=== PATIENT | female | born 1950 | race Caucasian/White ===

== ENCOUNTER 2016-04-04 13:37 | Inpatient (IN) | payer OTHER ==
--- NOTE | 2016-04-04 15:32 | PDOC ---
History of Present Illness - General History Source: Patient, Old Records Exam Limitations: No Limitations <Deann Motley - Last Filed: 04/04/16 16:19> - History of Present Illness Initial Comments: 04/04/16 16:30 The patient is a 65 year old female with significant past medical history of asthma, gastritis, cervical cancer s/p hysterectomy, vertebral fractures on chronic pain medications (morphine pump) who presents to the emergency department with worsening chest pain and abdominal pain for the last 2 weeks. The patient states that her chest pain is intermittent in nature and is described as pressure. The pain radiates to her back and is worse with deep inspiration. Her pain is described as a 10/10 in severity. She denies shortness of breath or palpitations.The patient is also complaining of suprapubic abdominal pain. She denies any associated nausea, vomiting, or diarrhea. She denies any hematuria but does report dysuria and frequency. She denies fevers and sick contacts. <Shari Vogel - Last Filed: 04/04/16 16:32> - General Chief Complaint: Pain Stated Complaint: CHEST PAIN Time Seen by Provider: 04/04/16 14:23 Past History - Past Medical History Asthma: Yes Cancer: Yes (cervical) Other medical history: chronic back pain due to sx after fall - Surgical History Cholecystectomy: Yes - Psycho/Social/Smoking Cessation Hx Anxiety: No Suicidal Ideation: No Smoking History: Former smoker Have you smoked in the past 12 months: No If you are a former smoker, when did you quit?: 1970 Information on smoking cessation initiated: No Hx Alcohol Use: No Drug/Substance Use Hx: No Substance Use Type: None <Deann Motley - Last Filed: 04/04/16 16:19> <Shari Vogel - Last Filed: 04/04/16 16:32> - Past Medical History Allergies/Adverse Reactions: Allergies Allergy/AdvReac Type Severity Reaction Status Date / Time No Known Allergies Allergy Verified 04/04/16 14:32 Home Medications: Ambulatory Orders Unobtainable [Unobtainable] 04/04/16 Review of Systems - Review of Systems Able to Perform ROS?: Yes Comments:: 04/04/16 16:31 GENERAL/CONSTITUTIONAL: +Weakness. No fever or chills. HEAD, EYES, EARS, NOSE AND THROAT: No change in vision. No ear pain or discharge. No sore throat. CARDIOVASCULAR: +Chest pain. No shortness of breath. RESPIRATORY: +Wheezing. No cough or hemoptysis. GASTROINTESTINAL: +Abdominal pain. No nausea, vomiting, diarrhea or constipation. GENITOURINARY: +Dysuria, +frequency. No change in urination. MUSCULOSKELETAL: No joint or muscle swelling or pain. No neck or back pain. SKIN: No rash NEUROLOGIC: No headache, vertigo, loss of consciousness, or change in strength/ sensation. ENDOCRINE: No increased thirst. No abnormal weight change. HEMATOLOGIC/LYMPHATIC: No anemia, easy bleeding, or history of blood clots. ALLERGIC/IMMUNOLOGIC: No hives or skin allergy. <Shari Vogel - Last Filed: 04/04/16 16:32> *Physical Exam - Vital Signs Last Vital Signs Temp Pulse Resp BP Pulse Ox 99.1 F 70 18 134/75 100 04/04/16 13:37 04/04/16 13:37 04/04/16 13:37 04/04/16 13:37 04/04/16 13:37 <Deann Motley - Last Filed: 04/04/16 16:19> - Vital Signs Last Vital Signs Temp Pulse Resp BP Pulse Ox 99.1 F 70 18 134/75 100 04/04/16 13:37 04/04/16 13:37 04/04/16 13:37 04/04/16 13:37 04/04/16 13:37 - Physical Exam Comments: 04/04/16 16:31 GENERAL: Awake, alert, and fully oriented, in no acute distress HEAD: No signs of trauma EYES: PERRLA, EOMI, sclera anicteric, conjunctiva clear ENT: Auricles normal inspection, hearing grossly normal, nares patent, oropharynx clear without exudates. Moist mucosa NECK: Normal ROM, supple, no lymphadenopathy, JVD, or masses LUNGS: +Poor air movement with diffuse bilateral wheezes. HEART: Regular rate and rhythm, normal S1 and S2, no murmurs, rubs or gallops ABDOMEN: +Diffusely tender, worse in the epigastric and suprapubic region with voluntary guarding, no rebound. Soft, normoactive bowel sounds. No masses EXTREMITIES: Normal range of motion, no edema. No clubbing or cyanosis. No cords, erythema, or tenderness NEUROLOGICAL: Cranial nerves II through XII grossly intact. Normal speech, normal gait SKIN: Warm, Dry, normal turgor, no rashes or lesions noted. <JaspreetShari - Last Filed: 04/04/16 16:32> ED Treatment Course - LABORATORY CBC & Chemistry Diagram: 04/04/16 15:19 04/04/16 15:19 <Deann Motley - Last Filed: 04/04/16 16:19> - LABORATORY CBC & Chemistry Diagram: 04/04/16 15:19 04/04/16 15:19 - ADDITIONAL ORDERS Additional order review: Laboratory Results 04/04/16 15:19 Sodium 141 Potassium 3.9 Chloride 106 Carbon Dioxide 21 Anion Gap 14 BUN 24 H Creatinine 0.8 Creat Clearance w eGFR > 60 Random Glucose 64 L Calcium 8.8 Total Bilirubin 2.1 H AST 23 ALT 18 Alkaline Phosphatase 96 Creatine Kinase 78 Troponin I 0.03 Total Protein 7.3 Albumin 3.9 04/04/16 15:19 RBC 4.32 MCV 87.8 MCHC 32.8 RDW 13.2 MPV 9.8 Neutrophils % 82.6 Lymphocytes % 12.7 Monocytes % 3.8 Eosinophils % 0.6 Basophils % 0.3 <Shari Vogel - Last Filed: 04/04/16 16:32> Medical Decision Making - Medical Decision Making 04/04/16 16:19 65-year-old female with history of cervical cancer status post hysterectomy, COPD/asthma and vertebral fractures on chronic pain management including an implanted morphine pump in the left lower quadrant who presents to the emergency Department with complaints of a 2 month history of progressively worsening lower abdominal pain, dysuria and chest pain with shortness of breath. Differential diagnosis includes but is not limited to: Intra-abdominal process, UTI, asthma/COPD exacerbation, pneumonia, PE, ACS, electrolyte abnormality, dehydration, toxic/metabolic derangement. Plan: 1. Labs 2. EKG 3. Urine analysis 4. Albuterol and Atrovent treatments 5. Solu-Medrol 6. Chest x-ray 7. Pain management 8. Patient will likely require abdominal imaging given her past medical history and clinical presentation 9. Observe and reevaluate <Deann Motley - Last Filed: 04/04/16 16:19> *DC/Admit/Observation/Transfer - Attestations Physician Attestion: 04/04/16 16:22 I, Dr. Deann Motley, attest that the scribes documentation that appears above has been prepared under my direction and personally reviewed by me in its entirety. I confirmed that the note above accurately reflects all work, treatment, procedures, and medical decision-making performed by me. <Deann Motley - Last Filed: 04/04/16 16:19> - Attestations Scribe Attestion: 04/04/16 16:31 Documentation prepared by Shari Vogel, acting as medical insurance clerk for Deann Motley MD. <Shari Vogel - Last Filed: 04/04/16 16:32> Diagnosis at time of Disposition: Abdominal pain, Chest pain
[2016-04-04 15:33] LABS: BASOPHIL 0.3 % (0-2.0); EOSINOPHIL 0.6 % (0-4.5); MCH 28.8 pg (25.7-33.7); MCHC 32.8 g/dl (32.0-36.0); MEAN CELL VOLUME 87.8 fl (80-96); MEAN PLT VOLUME 9.8 fl (7.5-11.1); NEUTROPHILS 82.6 % (42.8-82.8); PLATELET COUNT 215 K/MM3 (134-434); RDW 13.2 % (11.6-15.6); WHITE BLOOD COUNT 7.6 K/mm3 (4.0-10.0)
[2016-04-04 15:58] LABS: ALBUMIN 3.9 g/dl (3.4-5.0); ANION GAP 14 (8-16); BILIRUBIN,TOTAL 2.1 mg/dL (0.2-1.0); CALCIUM 8.8 mg/dL (8.5-10.1); CO2 21 mmol/L (21-32); CREATININE 0.8 mg/dL (0.55-1.02); GLUCOSE,RANDOM 64 mg/dL (74-106); SGPT/ALT 18 U/L (12-78); TOT PROT 7.3 g/dl (6.4-8.2)
[2016-04-04 16:00] LABS: ALK PHOS 96 U/L (45-117); TROPONIN I 0.03 ng/ml (0.00-0.05)
[2016-04-04 16:15] LABS: SGOT/AST 23 U/L (15-37)
[2016-04-04] MEDS ORDERED: methylPREDNISolone NA SUCC 125 MG/2 ML VIAL IVPB ONE (16:18)
[2016-04-04] MEDS ORDERED: IPRATROPIUM BR 0.02% 0.5 MG/2.5 ML VIAL.NEB. NEB ONE ×2 (16:18→16:30)
[2016-04-04] MEDS ORDERED: HYDROmorphone HCL CARPU-JECT 1 MG/1 ML DISP.SYRIN IVPUSH ONE (16:19)
[2016-04-04] MEDS ORDERED: HYDROmorphone HCL CARPU-JECT 1 MG/1 ML DISP.SYRIN ONE (16:30)
[2016-04-04] MEDS ORDERED: methylPREDNISolone NA SUCC 125 MG/2 ML VIAL ONE (16:30)
[2016-04-04] MEDS: ALBUTEROL SO4 0.083% IH SOL 2.5 MG/3 ML VIAL.NEB. NEB SCH ×4 (16:45→17:29)
[2016-04-04] MEDS ORDERED: ALBUTEROL SO4 0.083% IH SOL 2.5 MG/3 ML VIAL.NEB. NEB ONE (17:10)
[2016-04-04] MEDS ORDERED: SODIUM CHLORIDE 1,000 ML IV STA (17:16)
[2016-04-04 23:02] LABS: URINE APPEARANCE CLEAR; URINE BILIRUBIN NEGATIVE (NEGATIVE); URINE COLOR LTYELLOW; URINE GLUCOSE (UA) NEGATIVE (NEGATIVE); URINE KETONE 2+ (NEGATIVE); URINE LEUK ESTERASE NEGATIVE (NEGATIVE); URINE NITRITE NEGATIVE (NEGATIVE); URINE PROTEIN NEGATIVE (NEGATIVE); URINE UROBILINOGEN NEGATIVE E.U./dl (0.2-1.0)
[2016-04-04 23:17] LABS: URINE BLOOD 1+ (NEGATIVE)
[2016-04-04 23:20] LABS: URINE MUCUS RARE; URINE RBC <1 /hpf (0-3); URINE WBC 1 /hpf (3-5)
[2016-04-04] MEDS ORDERED: KETOROLAC TROMETHAMINE 30 MG/1 ML VIAL IVPUSH ONE (23:46)
--- NOTE | 2016-04-04 23:46 | PDOC ---
*Physical Exam - Vital Signs Last Vital Signs Temp Pulse Resp BP Pulse Ox 99.1 F 70 18 134/75 100 04/04/16 13:37 04/04/16 13:37 04/04/16 13:37 04/04/16 13:37 04/04/16 13:37 ED Treatment Course - LABORATORY CBC & Chemistry Diagram: 04/04/16 15:19 04/04/16 15:19 - ADDITIONAL ORDERS Additional order review: Laboratory Results 04/04/16 04/04/16 04/04/16 22:40 22:20 19:20 D-Dimer Cancelled Cancelled Sodium Potassium Chloride Carbon Dioxide Anion Gap BUN Creatinine Creat Clearance w eGFR Random Glucose Calcium Total Bilirubin AST ALT Alkaline Phosphatase Creatine Kinase Troponin I Total Protein Albumin Urine Color Ltyellow Urine Appearance Clear Urine pH 5.0 Ur Specific [place] 1.026 Urine Protein Negative Urine Glucose (UA) Negative Urine Ketones 2+ H Urine Blood 1+ H Urine Nitrite Negative Urine Bilirubin Negative Urine Urobilinogen Negative Ur Leukocyte Esterase Negative 04/04/16 15:19 D-Dimer Sodium 141 Potassium 3.9 Chloride 106 Carbon Dioxide 21 Anion Gap 14 BUN 24 H Creatinine 0.8 Creat Clearance w eGFR > 60 Random Glucose 64 L Calcium 8.8 Total Bilirubin 2.1 H AST 23 ALT 18 Alkaline Phosphatase 96 Creatine Kinase 78 Troponin I 0.03 Total Protein 7.3 Albumin 3.9 Urine Color Urine Appearance Urine pH Ur Specific [place] Urine Protein Urine Glucose (UA) Urine Ketones Urine Blood Urine Nitrite Urine Bilirubin Urine Urobilinogen Ur Leukocyte Esterase 04/04/16 15:19 RBC 4.32 MCV 87.8 MCHC 32.8 RDW 13.2 MPV 9.8 Neutrophils % 82.6 Lymphocytes % 12.7 Monocytes % 3.8 Eosinophils % 0.6 Basophils % 0.3 - Medications Given in the ED: ED Medications Discontinued Medications Generic Name Dose Route Start Last Admin Trade Name Freq PRN Reason Stop Dose Admin Albuterol Sulfate 1 amp 04/04/16 16:30 04/04/16 17:29 Ventolin 0.083% Nebulizer Soln - NEB 04/04/16 17:16 1 amp Q15M ALDA Administration Hydromorphone HCl 1 mg 04/04/16 16:19 04/04/16 16:39 Dilaudid Injection - IVPUSH 04/04/16 16:20 1 mg ONCE ONE Administration Sodium Chloride 1,000 mls @ 1,000 mls/hr 04/04/16 17:16 04/04/16 17:36 Normal Saline - IV 04/04/16 18:15 1,000 mls/hr ASDIR STA Administration Ipratropium Echo 1 amp 04/04/16 16:18 04/04/16 16:39 Atrovent 0.02% Nebulizer - NEB 04/04/16 16:19 1 amp ONCE ONE Administration Methylprednisolone Sodium Succinate 125 mg 04/04/16 16:18 04/04/16 16:39 Solu-Medrol - IVPB 04/04/16 16:19 125 mg ONCE ONE Administration *DC/Admit/Observation/Transfer Diagnosis at time of Disposition: Abdominal pain, Chest pain - Discharge Dispostion Condition at time of disposition: Stable Admit: Yes
[2016-04-04] MEDS ORDERED: KETOROLAC TROMETHAMINE 30 MG/1 ML VIAL ONE (23:50)
--- NOTE | 2016-04-05 00:30 | PN ---
<Jillian Teran - Last Filed: 04/05/16 04:55> Teaching Attending Note ATTENDING PHYSICIAN STATEMENT I saw and evaluated the patient. I reviewed the resident's note and discussed the case with the resident. I agree with the resident's findings and plan as documented. SUBJECTIVE: 65 yo F presents complaining of worsening lower abdomen radiating towards back for 2 weeks. She describes her chest pain as burning and notes that she burps sometimes and also relieved with her nebulization. She describes her abdominal pain as sharp and constant (10/10), which started in June, after her morphine pump was replaced. She reports that her pain has no alleviating or exacerbating factors. She also notes dysuria and increased frequency Q 5minutes when the pain is at its worst. She recently went to [facility] in February and was discharged with pain meds. Denies following with pain management. Denies: vomiting, cough PMHx: asthma, gastritis, cervical cancer s/p hysterectomy, vertebral fractures on chronic pain medications (morphine pump) Family Hx: Father had colon cancer Allergies: penicillin Social Hx: Smoker 14 years 1 pack in there days. OBJECTIVE: Last Vital Signs Temp Pulse Resp BP Pulse Ox 99.1 F 70 18 134/75 100 04/04/16 13:37 04/04/16 13:37 04/04/16 13:37 04/04/16 13:37 04/04/16 13:37 GENERAL: Awake, alert, and fully oriented, in no acute distress HEENT: Atraumatic. PERRLA, EOMI. Moist mucosa. No JVD LUNGS: No distress, speaks full sentences, clear to auscultation bilaterally HEART: Regular rate and rhythm, normal S1 and S2, no murmurs, rubs or gallops, peripheral pulses normal and equal bilaterally. ABDOMEN: Soft, abdominal tenderness bilateral lower, normoactive bowel sounds. No guarding, no rebound. No masses EXTREMITIES: Normal inspection, Normal range of motion, no edema. No clubbing or cyanosis. NEUROLOGICAL: Cranial nerves II through XII grossly intact. Normal speech, normal gait, no focal sensorimotor deficits SKIN: Warm, Dry, normal turgor, no rashes or lesions noted. CBCD WBC 7.6 K/mm3 (4.0-10.0) 04/04/16 15:19 RBC 4.32 M/mm3 (3.60-5.2) 04/04/16 15:19 Hgb 12.4 GM/dL (10.7-15.3) 04/04/16 15:19 Hct 37.9 % (32.4-45.2) 04/04/16 15:19 MCV 87.8 fl (80-96) 04/04/16 15:19 MCHC 32.8 g/dl (32.0-36.0) 04/04/16 15: RDW 13.2 % (11.6-15.6) 04/04/16 15:19 Plt Count 215 K/MM3 (134-434) 04/04/16 15:19 MPV 9.8 fl (7.5-11.1) 04/04/16 15:19 CMP Sodium 141 mmol/L (136-145) 04/04/16 15:19 Potassium 3.9 mmol/L (3.5-5.1) 04/04/16 15: Chloride 106 mmol/L (98-107) 04/04/16 15:19 Carbon Dioxide 21 mmol/L (21-32) 04/04/16 15:19 Anion Gap 14 (8-16) 04/04/16 15:19 BUN 24 mg/dL (7-18) H 04/04/16 15:19 Creatinine 0.8 mg/dL (0.55-1.02) 04/04/16 15:19 Creat Clearance w eGFR > 60 (>60) 04/04/16 15:19 Calcium 8.8 mg/dL (8.5-10.1) 04/04/16 15:19 Total Bilirubin 2.1 mg/dL (0.2-1.0) H 04/04/16 15:19 AST 23 U/L (15-37) 04/04/16 15:19 ALT 18 U/L (12-78) 04/04/16 15:19 Alkaline Phosphatase 96 U/L (45-117) 04/04/16 15:19 Total Protein 7.3 g/dl (6.4-8.2) 04/04/16 15:19 Albumin 3.9 g/dl (3.4-5.0) 04/04/16 15:19 Chest X-Ray Impression: No evidence of active pulmonary disease. Abdomen and Pelvis CT Impression: No definite CT evidence of acute pathology. Pneumobilia is seen probably on a post surgical basis. Correlate clinically. There is mild nonspecific dilation of the main pancreatic duct. Comparison with previous CT/MRI studies is suggested if available from a different facility. If prior studies are not 1. ASSESSMENT AND PLAN: 1.) Acute on chronic abdominal pain possible adhesions -Percocet Q 6 hrs PRN -Continue morphine pump -Pain management consult 2.) Elevated D-dimer most likely secondary to history of cancer. Patient with no clinical symptoms of DVT or PE. - no further testing at this time. If Vitals change consider VQ scan Documentation prepared by Jillian Teran, acting as emergency medicine medical director for Chelsy Molina M.D. <Chelsy Molina - Last Filed: 04/05/16 07:41> Teaching Attending Note Name of Resident: Korin Whitman Addendum to plan: Discussed case with GI showroom sales consultant Dr Wilcox who is aware of patient's extensive GI history with Pancreatic duct obstruction recently treated at [facility] by Dr Ramos. Patient is currently c/o b/l lower abdominal pain and recommendation to hydrate and empirically treat with levo and flagyl.
--- NOTE | 2016-04-05 01:02 | CONSULT ---
Consultation: REQUESTING PROVIDER: CONSULT REQUEST: We have been asked to medically evaluate this patient for ( specify). HISTORY OF PRESENT ILLNESS: REVIEW OF SYSTEMS: CONSTITUTIONAL: Absent: fever, chills, diaphoresis, generalized weakness, malaise, loss of appetite, weight change HEENT: Absent: rhinorrhea, nasal congestion, throat pain, throat swelling, difficulty swallowing, mouth swelling, ear pain, eye pain, visual changes CARDIOVASCULAR: Absent: chest pain, syncope, palpitations, irregular heart rate, lightheadedness , peripheral edema RESPIRATORY: Absent: cough, shortness of breath, dyspnea with exertion, orthopnea, wheezing, stridor, hemoptysis GASTROINTESTINAL: Absent: abdominal pain, abdominal distension, nausea, vomiting, diarrhea, constipation, melena, hematochezia GENITOURINARY: Absent: dysuria, frequency, urgency, hesitancy, hematuria, flank pain, genital pain MUSCULOSKELETAL: Absent: myalgia, arthralgia, joint swelling, back pain, neck pain SKIN: Absent: rash, itching, pallor HEMATOLOGIC/IMMUNOLOGIC: Absent: easy bleeding, easy bruising, lymphadenopathy, frequent infections ENDOCRINE: Absent: unexplained weight gain, unexplained weight loss, heat intolerance, cold intolerance NEUROLOGIC: Absent: headache, focal weakness or paresthesias, dizziness, unsteady gait, seizure, mental status changes, bladder or bowel incontinence PSYCHIATRIC: Absent: anxiety, depression, suicidal or homicidal ideation, hallucinations. PHYSICAL EXAMINATION Vital Signs - 24 hr 04/04/16 13:37 Temperature 99.1 F Pulse Rate 70 Respiratory 18 Rate Blood Pressure 134/75 O2 Sat by Pulse 100 Oximetry (%) GENERAL: Awake, alert, and fully oriented, in no acute distress. HEAD: Normal with no signs of trauma. EYES: Pupils equal, round and reactive to light, extraocular movements intact, sclera anicteric, conjunctiva clear. No lid lag. EARS, NOSE, THROAT: Ears normal, nares patent, oropharynx clear without exudates. Moist mucous membranes. NECK: Normal range of motion, supple without lymphadenopathy, JVD, or masses. LUNGS: Breath sounds equal, clear to auscultation bilaterally. No wheezes, and no crackles. No accessory muscle use. HEART: Regular rate and rhythm, normal S1 and S2 without murmur, rub or gallop. ABDOMEN: Soft, nontender, not distended, normoactive bowel sounds, no guarding, no rebound, no masses. No hepatomegaly or splenomegaly. MUSCULOSKELETAL: Normal range of motion at all joints. No bony deformities or tenderness. No CVA tenderness. UPPER EXTREMITIES: 2+ pulses, warm, well-perfused. No cyanosis. No clubbing. Cap refill <2 seconds. No peripheral edema. LOWER EXTREMITIES: 2+ pulses, warm, well-perfused. No calf tenderness. No peripheral edema. NEUROLOGICAL: Cranial nerves II-XII intact. Normal speech. Normal gait. PSYCHIATRIC: Cooperative. Good eye contact. Appropriate mood and affect. SKIN: Warm, dry, normal turgor, no rashes or lesions noted. Laboratory Results - last 24 hr 04/04/16 04/04/16 04/04/16 15:19 15:19 19:20 WBC 7.6 RBC 4.32 Hgb 12.4 Hct 37.9 MCV 87.8 MCHC 32.8 RDW 13.2 Plt Count 215 MPV 9.8 Neutrophils % 82.6 Lymphocytes % 12.7 Monocytes % 3.8 Eosinophils % 0.6 Basophils % 0.3 D-Dimer Cancelled Sodium 141 Potassium 3.9 Chloride 106 Carbon Dioxide 21 Anion Gap 14 BUN 24 H Creatinine 0.8 Creat Clearance w eGFR > 60 Random Glucose 64 L Calcium 8.8 Total Bilirubin 2.1 H AST 23 ALT 18 Alkaline Phosphatase 96 Creatine Kinase 78 Troponin I 0.03 Total Protein 7.3 Albumin 3.9 Urine Color Urine Appearance Urine pH Ur Specific [place] Urine Protein Urine Glucose (UA) Urine Ketones Urine Blood Urine Nitrite Urine Bilirubin Urine Urobilinogen Ur Leukocyte Esterase Urine RBC Urine WBC Urine Mucus 04/04/16 04/04/16 04/04/16 22:20 22:40 23:00 WBC RBC Hgb Hct MCV MCHC RDW Plt Count MPV Neutrophils % Lymphocytes % Monocytes % Eosinophils % Basophils % D-Dimer Cancelled 461 H Sodium Potassium Chloride Carbon Dioxide Anion Gap BUN Creatinine Creat Clearance w eGFR Random Glucose Calcium Total Bilirubin AST ALT Alkaline Phosphatase Creatine Kinase Troponin I Total Protein Albumin Urine Color Ltyellow Urine Appearance Clear Urine pH 5.0 Ur Specific [place] 1.026 Urine Protein Negative Urine Glucose (UA) Negative Urine Ketones 2+ H Urine Blood 1+ H Urine Nitrite Negative Urine Bilirubin Negative Urine Urobilinogen Negative Ur Leukocyte Esterase Negative Urine RBC <1 Urine WBC 1 Urine Mucus Rare ASSESSMENT/PLAN: Dispo: We will continue to follow the patient. Thank you for this consultative opportunity.
[2016-04-05 01:11] LABS: TROPONIN I 0.04 ng/ml (0.00-0.05)
[2016-04-05] MEDS ORDERED: ALBUTEROL SO4 2.5/IPRATROPIUM 0.5 INH SOL 3 ML VIAL.NEB. NEB PRN (03:00)
[2016-04-05] MEDS ORDERED: OXYCODONE/APAP 5/325MG COMBO TABLET PO ONE (04:06)
--- NOTE | 2016-04-05 04:53 | HP ---
CHIEF COMPLAINT: Abdominal pain PCP: Dr. Ann Dwyer HISTORY OF PRESENT ILLNESS: 65 year old female presented to the ED via EMS with the chief complaints of severe abdominal pain. As per the patient, abdominal pain was located diffusely but mostly on the left lower quadrant, intermittent in nature, sharp in quality , 6/10 rising to 10/10 in intensity, radiating towards the back, no aggravating or relieving factors. She mentions abdominal pain started since June, when they changed the morphine pump. Ever since, she has had abdominal pain as described above. Went to [facility] in February, for the same problem but was discharged from the ED with pain meds. When she has the abdominal pain, she feels like urinating, has also noticed increased in urination, burning in nature +, but no incontinence. Patient also reports central chest pain, burning in nature, burping +, started 2-3 days ago, intermittent type, associated with SOB and palpitations no aggravating or relieving factors. Takes albuterol inhaler which gives short term relief for SOB. Patient states she does have dizziness, feels weak, has headache on/off but denies fever , chills, rigors, sweating, LOC. ER course was notable for: (1) CBC, CMP (2) Abd/Pelvis CT (3) Recent Travel: None PAST MEDICAL HISTORY: Asthma, Gastritis, cervical cancer s/p hysterectomy in 1994, vertebral fracture on chronic pain meds (morphine pump) PAST SURGICAL HISTORY: s/p hysterectomy for Cervical CA Social History: Smoking: Stopped smoking i n2001, smoked for 14 years 1 pack in 3 days Alcohol: Doesn't drink alcohol now. Drugs: No drugs Family History: Allergies PENICILLIN, ASPIRIN Gets rash and vomiting. Lives alone. HOME MEDICATIONS: Medication Instructions Recorded Unobtainable [Unobtainable] 04/04/16 REVIEW OF SYSTEMS CONSTITUTIONAL: Present: generalized weakness, malaise Absent: fever, chills, diaphoresis, loss of appetite, weight change HEENT: Absent: rhinorrhea, nasal congestion, throat pain, throat swelling, difficulty swallowing, mouth swelling, ear pain, eye pain, visual changes CARDIOVASCULAR: Present: Chest pain Absent: syncope, palpitations, irregular heart rate, lightheadedness, peripheral edema RESPIRATORY: Present: shortness of breath, dyspnea with exertion Absent: cough, orthopnea, wheezing, stridor, hemoptysis GASTROINTESTINAL: Present: abdominal pain Absent:abdominal distension, nausea, vomiting, diarrhea, constipation, melena, hematochezia GENITOURINARY: Present: dysuria, frequency Absent: urgency, hesitancy, hematuria, flank pain, genital pain MUSCULOSKELETAL: Absent: myalgia, arthralgia, joint swelling, back pain, neck pain SKIN: Absent: rash, itching, pallor HEMATOLOGIC/IMMUNOLOGIC: Absent: easy bleeding, easy bruising, lymphadenopathy, frequent infections ENDOCRINE: Absent: unexplained weight gain, unexplained weight loss, heat intolerance, cold intolerance NEUROLOGIC: Absent: headache, focal weakness or paresthesias, dizziness, unsteady gait, seizure, mental status changes, bladder or bowel incontinence PSYCHIATRIC: Absent: anxiety, depression, suicidal or homicidal ideation, hallucinations. PHYSICAL EXAMINATION GENERAL: Patient lying in bed in supine position, Awake, alert, and fully oriented, in abdominal pain. HEAD: Normal with no signs of trauma. EYES: EOM intact, no pallor or icterus. EARS, NOSE, THROAT: Ears normal. Moist mucous membranes. NECK: Normal range of motion, supple. LUNGS: Breath sounds equal, clear to auscultation bilaterally. No wheezes, and no crackles. No accessory muscle use. HEART: Regular rate and rhythm, normal S1 and S2 without murmur, rub or gallop. ABDOMEN: Surgical scar clark +, Morphine pump placed on the left upper quadrant, Soft, tenderness over the left upper quadrant, not distended, normoactive bowel sounds, no guarding, no rebound, no masses. hepatomegaly or splenomegaly couldn't be appreciated. MUSCULOSKELETAL: Normal range of motion at all joints. No bony deformities or tenderness. No CVA tenderness. UPPER EXTREMITIES: 2+ pulses, warm, well-perfused. No cyanosis. No clubbing. No peripheral edema. LOWER EXTREMITIES: 2+ pulses, warm, well-perfused. No calf tenderness. No peripheral edema. NEUROLOGICAL: Cranial nerves II-XII intact. Normal speech. Gait couldn't be observed. PSYCHIATRIC: Cooperative. Good eye contact. Appropriate mood and affect. SKIN: Warm, dry, normal turgor, no rashes or lesions noted. Abdominal CT/Pelvis: No acute pathology. Pneumobilia seen probably on a postsurgical basis. There is mild nonspecific dilatation of the main pancreatic alvaro. ASSESSMENT/PLAN: 65 year old female with significant PMH of Asthma, Gastritis, cervical cancer s/ p hysterectomy in 1994, vertebral fracture on chronic pain meds (morphine pump) presented to the ED via EMS with the chief complaints of severe abdominal pain. # Abdominal pain Pain possibly secondary to her morphine pump placement ? Adhesions H/o vertebral fracture with referal to dermatomes. Abd Pelvis CT showed no acute pathology, report mentioned above Comparison with previous CT/MRI suggested if available in different facility. Had complained of dysuria, increased frequency of urine associated with abdominal pain, UA negative for UTI Percocet Q6H PRN Pain management consult Levofloxacin IV 500mg Daily Flagyl IV Q8H # Chest pain Clinical symptoms less likely PE. Wells score 2 Elevated D Dimer most likely due to her previous malignancy However, if symptoms change consider V/Q scan # Asthma-Stable this admission Duoneb PRN # FEN IV NS @ 200 mls/hr Electrolytes to be repeated tomorrow NPO except for meds. # Prophylaxis For DVT- Enoxaparin For GI- On Protonix Dr. Al spoke with Dr. Wilcox. Patient is well known to Dr. Wilcox, has frequent blocking of pancreatic duct, had recent ERCP done at [facility] by Dr. Newsome. Plan is to keep her at NPO, IV fluids @ 200mls, Levofloxacin, Flagyl. Illness, Investigation and plan of care explained to the patient. She verbalized understanding. Case seen and discussed with Dr. Molina. Visit type - Emergency Visit Emergency Visit: Yes ED Registration Date: 04/05/16 Care time: The patient presented to the Emergency Department on the above date and was hospitalized for further evaluation of their emergent condition. - New Patient This patient is new to me today: Yes Date on this admission: 04/05/16 - Critical Care Critical Care patient: No
[2016-04-05] MEDS ORDERED: OXYCODONE/APAP 5/325MG COMBO TABLET ONE (05:04)
[2016-04-05] MEDS ORDERED: OXYCODONE/APAP 5/325MG COMBO TABLET PO PRN (05:15)
[2016-04-05] MEDS ORDERED: ACETAMINOPHEN 325 MG TABLET (FP) PO PRN (05:43)
[2016-04-05] MEDS ORDERED: oxyCODONE HCL 5 MG TABLET PO PRN (05:43)
[2016-04-05] MEDS ORDERED: SODIUM CHLORIDE 1,000 ML IV SCH (07:00)
[2016-04-05] MEDS ORDERED: LEVOFLOXACIN 500 MG IVPB 100 ML IVPB SCH (07:45)
[2016-04-05] MEDS ORDERED: LEVOFLOXACIN 500 MG IVPB 100 ML IVPB ONE (08:11)
[2016-04-05] MEDS ORDERED: METRONIDAZOLE 500 MG PREMIXED 100 ML IVPB ONE (08:11)
[2016-04-05] MEDS: SODIUM CHLORIDE 1,000 ML IV SCH (08:23)
--- NOTE | 2016-04-05 08:50 | PN ---
Teaching Attending Note Name of Resident: Svetlana Duncan ATTENDING PHYSICIAN STATEMENT I saw and evaluated the patient. I reviewed the resident's note and discussed the case with the resident. I agree with the resident's findings and plan as documented. SUBJECTIVE: c/o having abdominal pain . No chest pain. OBJECTIVE: Vital Signs Temperature 98 F 04/05/16 08:26 Pulse Rate 87 04/05/16 08:26 Respiratory Rate 18 04/05/16 08:26 Blood Pressure 122/65 04/05/16 08:26 O2 Sat by Pulse Oximetry (%) 98 04/05/16 08:26 CBCD WBC 7.6 K/mm3 (4.0-10.0) 04/04/16 15: RBC 4.32 M/mm3 (3.60-5.2) 04/04/16 15:19 Hgb 12.4 GM/dL (10.7-15.3) 04/04/16 15:19 Hct 37.9 % (32.4-45.2) 04/04/16 15:19 MCV 87.8 fl (80-96) 04/04/16 15:19 MCHC 32.8 g/dl (32.0-36.0) 04/04/16 15:19 RDW 13.2 % (11.6-15.6) 04/04/16 15:19 Plt Count 215 K/MM3 (134-434) 04/04/16 15:19 MPV 9.8 fl (7.5-11.1) 04/04/16 15:19 CMP Sodium 141 mmol/L (136-145) 04/04/16 15:19 Potassium 3.9 mmol/L (3.5-5.1) 04/04/16 15:19 Chloride 106 mmol/L (98-107) 04/04/16 15:19 Carbon Dioxide 21 mmol/L (21-32) 04/04/16 15:19 Anion Gap 14 (8-16) 04/04/16 15:19 BUN 24 mg/dL (7-18) H 04/04/16 15:19 Creatinine 0.8 mg/dL (0.55-1.02) 04/04/16 15:19 Creat Clearance w eGFR > 60 (>60) 04/04/16 15:19 Random Glucose 64 mg/dL (74-106) L 04/04/16 15:19 Calcium 8.8 mg/dL (8.5-10.1) 04/04/16 15:19 Total Bilirubin 2.1 mg/dL (0.2-1.0) H 04/04/16 15:19 AST 23 U/L (15-37) 04/04/16 15:19 ALT 18 U/L (12-78) 04/04/16 15:19 Alkaline Phosphatase 96 U/L (45-117) 04/04/16 15:19 Total Protein 7.3 g/dl (6.4-8.2) 04/04/16 15:19 Albumin 3.9 g/dl (3.4-5.0) 04/04/16 15:19 CARDIAC ENZYMES Creatine Kinase 51 IU/L (26-192) 04/05/16 07:54 Troponin I 0.04 ng/ml (0.00-0.05) 04/05/16 07:54 Current Medications Generic Name Dose Route Start Last Admin Trade Name Freq PRN Reason Stop Dose Admin Albuterol/Ipratropium 1 amp 04/05/16 03:00 Duoneb - NEB Q6H PRN SHORTNESS OF BREATH Ceftriaxone Sodium 1 gm 04/05/16 19:30 Rocephin 1gm Ivpb (Pre-Docked) IVPB DAILY ALDA Enoxaparin Sodium 40 mg 04/05/16 10:00 04/05/16 09:37 Lovenox - SQ 40 mg DAILY ALDA Administration Pantoprazole Sodium 100 mls @ 200 mls/hr 04/05/16 10:00 04/05/16 09:27 Protonix 40mg Ivpb (Pre-Docked) IVPB 200 mls/hr DAILY ALDA Administration Metronidazole 100 mls @ 100 mls/hr 04/05/16 07:45 04/05/16 18:24 Flagyl 500mg Premixed Ivpb - IVPB 100 mls/hr Q8H-IV ALDA Administration Sodium Chloride 1,000 mls @ 200 mls/hr 04/05/16 07:39 04/05/16 08:23 Normal Saline - IV 200 mls/hr ASDIR ALDA Administration Metoclopramide HCl 10 mg 04/05/16 18:15 04/05/16 18:29 Reglan Injection - IVPB 10 mg Q8H ALDA Administration Ondansetron HCl 4 mg 04/05/16 18:14 04/05/16 18:29 Zofran Injection IVPB 04/06/16 06:15 4 mg Q4H ALDA Administration Ondansetron HCl 4 mg 04/06/16 06:00 Zofran Injection IVPB Q4H PRN Ondansetron HCl 4 mg 04/05/16 19:14 Zofran Injection IVPB Q4H PRN NAUSEA AND/OR VOMITING Oxycodone HCl 5 mg 04/05/16 05:43 Roxicodone - PO Q6H PRN PAIN Medication Instructions Recorded Albuterol Sulfate Inhaler - 2 inh PO Q4H PRN 04/05/16 [Ventolin Hfa Inhaler -] Docusate Sodium [Colace -] 100 mg PO TID 04/05/16 Fluticasone Propionate [Flovent 110 mcg IH BID 04/05/16 Diskus] Gabapentin 600 mg PO TID 04/05/16 Loratadine 10 mg PO DAILY 04/05/16 Metoclopramide HCl [Reglan] 10 mg PO Q8H 04/05/16 Montelukast Na [Singulair -] 10 mg PO DAILY 04/05/16 [place]-3 Fatty Acids [[place]-3] 1,000 mg PO DAILY 04/05/16 Pantoprazole Sodium 40 mg PO DAILY 04/05/16 ASSESSMENT AND PLAN: c/o having abdominal pain . No chest pain States that after changing her morphine pump started to have this pain over one year now on IV rocephin/Flagyl changed from Levaquin since DDI with zotran will have QT prolongation # Intractable Nausea and vomiting added Zofran DVT Px; Lovenox
[2016-04-05 08:57] LABS: TROPONIN I 0.04 ng/ml (0.00-0.05)
[2016-04-05] MEDS: METRONIDAZOLE 500 MG PREMIXED 100 ML IVPB SCH ×3 (09:06→18:24)
[2016-04-05] MEDS ORDERED: PANTOPRAZOLE SODIUM 40 MG VIAL ONE (09:13)
[2016-04-05] MEDS ORDERED: ONDANSETRON 4 MG/2 ML VIAL ONE (09:13)
[2016-04-05] MEDS: PANTOPRAZOLE SODIUM 100 ML IVPB SCH (09:27)
[2016-04-05] MEDS: ENOXAPARIN NA (PORCINE) 40 MG/0.4 ML DISP.SYRIN SQ SCH (09:37)
[2016-04-05 12:08] VITALS: BMI 20.5
--- NOTE | 2016-04-05 15:36 | EKG ---
Test Reason : Blood Pressure : / mmHG Vent. Rate : 065 BPM Atrial Rate : 065 BPM P-R Int : 184 ms QRS Dur : 084 ms QT Int : 422 ms P-R-T Axes : 071 -05 038 degrees QTc Int : 438 ms POOR DATA QUALITY NORMAL SINUS RHYTHM NORMAL ECG WHEN COMPARED WITH ECG OF 04-APR-2016 13:43, NO SIGNIFICANT CHANGE WAS FOUND Confirmed by TRAVIS GONZALES MD ([id number]) on 04/05/2016 3:36:19 PM Referred By: Confirmed By:TRAVIS GONZALES MD
--- NOTE | 2016-04-05 17:56 | PN ---
Physical Exam: SUBJECTIVE: Patient seen and examined. She is complaining of abdominal pain. denies N/V, diarrhea, constipation. OBJECTIVE: Vital Signs Period Temp Pulse Resp BP Sys/Armenta Pulse Ox Last 24 Hr 97.8 F-98.1 F 68-87 18-18 122-149/65-86 97-99 GENERAL: The patient is awake, alert, and fully oriented, in no acute distress. HEAD: Normal with no signs of trauma. EYES: PERRL, extraocular movements intact, sclera anicteric, conjunctiva clear. No ptosis. ENT: Ears normal, nares patent, oropharynx clear without exudates, moist mucous membranes. NECK: Trachea midline, full range of motion, supple. LUNGS: Breath sounds equal, clear to auscultation bilaterally, no wheezes, no crackles, no accessory muscle use. HEART: Regular rate and rhythm, S1, S2 without murmur, rub or gallop. ABDOMEN: Soft, tender in epigastrium, nondistended, normoactive bowel sounds, no guarding, no rebound, no hepatosplenomegaly, pump in LUQ. EXTREMITIES: 2+ pulses, warm, well-perfused, no edema. NEUROLOGICAL: Cranial nerves II through XII grossly intact. Normal speech, gait not observed. PSYCH: Normal mood, normal affect. SKIN: Warm, dry, normal turgor, no rashes, abd scar. Laboratory Results - last 24 hr 04/05/16 07:54 Creatine Kinase 51 Troponin I 0.04 Active Medications Generic Name Dose Route Start Last Admin Trade Name Freq PRN Reason Stop Dose Admin Acetaminophen 325 mg 04/05/16 05:43 Tylenol - PO Q6H PRN PAIN Albuterol/Ipratropium 1 amp 04/05/16 03:00 Duoneb - NEB Q6H PRN SHORTNESS OF BREATH Enoxaparin Sodium 40 mg 04/05/16 10:00 04/05/16 09:37 Lovenox - SQ 40 mg DAILY ALDA Administration Pantoprazole Sodium 100 mls @ 200 mls/hr 04/05/16 10:00 04/05/16 09:27 Protonix 40mg Ivpb (Pre-Docked) IVPB 200 mls/hr DAILY ALDA Administration Metronidazole 100 mls @ 100 mls/hr 04/05/16 07:45 04/05/16 09:27 Flagyl 500mg Premixed Ivpb - IVPB Not Given Q8H-IV ALDA Levofloxacin 100 mls @ 100 mls/hr 04/05/16 07:45 04/05/16 08:24 Levaquin 500 Mg Premixed Ivpb - IVPB 100 mls/hr DAILY@0600 ALDA Administration Sodium Chloride 1,000 mls @ 200 mls/hr 04/05/16 07:39 04/05/16 08:23 Normal Saline - IV 200 mls/hr ASDIR ALDA Administration Oxycodone HCl 5 mg 04/05/16 05:43 Roxicodone - PO Q6H PRN PAIN ASSESSMENT/PLAN: 65 year old female with significant PMH of Asthma, Gastritis, cervical cancer s/ p hysterectomy in 1994, vertebral fracture on chronic pain meds (morphine pump) presented to the ED via EMS with the chief complaints of severe abdominal pain. Abdominal pain -Pain possibly secondary to her morphine pump placement -GI consult pending -Percocet Q6H PRN -Pain management consult -Levofloxacin IV 500mg Daily changed to Rocephin -Flagyl IV Q8H Asthma-Stable this admission -Duoneb PRN FEN -IV NS @ 200 mls/hr -Electrolytes to be repeated tomorrow -Clear liquid diet Prophylaxis DVT- Enoxaparin GI- On Protonix Disposition; med surg Problem List - Problems (1) Abdominal pain Code(s): R10.9 - UNSPECIFIED ABDOMINAL PAIN Visit type - Emergency Visit Emergency Visit: Yes ED Registration Date: 04/05/16 Care time: The patient presented to the Emergency Department on the above date and was hospitalized for further evaluation of their emergent condition. - New Patient This patient is new to me today: Yes Date on this admission: 04/05/16 - Critical Care Critical Care patient: No - Discharge Referral Referred to [facility] Med P.C.: No
--- NOTE | 2016-04-05 18:21 | CON.GI ---
Consult Consult Specialty:: GI Referred by:: Hospitalist Reason for Consultation:: abdominal pain - History of Present Illness History of Present Illness: The patient is a 65 year old female with significant past medical history of choelechoduodenostomy complicated by CBD with food debris, s/p ERCP at [facility] asthma, gastritis, cervical cancer s/p hysterectomy, vertebral fractures on chronic pain medications (morphine pump) who presents to the emergency department with worsening chest pain and abdominal pain for the last 2 weeks. The patient states that her chest pain is intermittent in nature and is described as pressure. The pain radiates to her back and is worse with deep inspiration. Her pain is described as a 10/10 in severity. SHe complains of diffuse abdoiminal pain, bloating associated with nauea and vomitingShe denies shortness of breath or palpitations.The patient is also complaining of suprapubic abdominal pain. She denies any associated nausea, vomiting, or diarrhea. She denies any hematuria but does report dysuria and frequency. She denies fevers and sick contacts. - Past Medical History ...: No - Alcohol/Substance Use Hx Alcohol Use: No - Smoking History Smoking history: Former smoker Have you smoked in the past 12 months: No If you are a former smoker, when did you quit?: 1970 Home Medications - Allergies Allergies/Adverse Reactions: Allergies Allergy/AdvReac Type Severity Reaction Status Date / Time No Known Allergies Allergy Verified 04/04/16 14:32 - Home Medications Home Medications: Ambulatory Orders Albuterol Sulfate Inhaler - [Ventolin Hfa Inhaler -] 2 inh PO Q4H PRN 04/05/16 Docusate Sodium [Colace -] 100 mg PO TID 04/05/16 Fluticasone Propionate [Flovent Diskus] 110 mcg IH BID 04/05/16 Gabapentin 600 mg PO TID 04/05/16 Loratadine 10 mg PO DAILY 04/05/16 Metoclopramide HCl [Reglan] 10 mg PO Q8H 04/05/16 Montelukast Na [Singulair -] 10 mg PO DAILY 04/05/16 [place]-3 Fatty Acids [[place]-3] 1,000 mg PO DAILY 04/05/16 Pantoprazole Sodium 40 mg PO DAILY 04/05/16 Physical Exam-GI Vital Signs: Vital Signs Temperature 98.1 F 04/05/16 14:51 Pulse Rate 75 04/05/16 14:51 Respiratory Rate 18 04/05/16 14:51 Blood Pressure 140/85 04/05/16 14:51 O2 Sat by Pulse Oximetry (%) 99 04/05/16 14:51 Constitutional: Yes: Well Nourished Eyes: Yes: Conjunctiva Clear HENT: Yes: Atraumatic Neck: Yes: Supple Cardiovascular: Yes: Regular Rate and Rhythm Respiratory: Yes: CTA Bilaterally ...Palpate: Yes: Soft, Tenderness (--diffuse). No: Firm/Rigid, Guarding, Hepatomegaly, Mass, Splenomegaly Problem List - Problems (1) Abdominal pain Assessment/Plan: etiology unclear r/o biliary colic, bacterial overgrowth, IBS R> empiric Antibiotic use Reglan and Zofran for intractable vomiting IV Protonix made to ff-up with Dr Suhail Santiago as an outpatient Code(s): R10.9 - UNSPECIFIED ABDOMINAL PAIN
[2016-04-05] MEDS: ONDANSETRON 4 MG/2 ML VIAL IVPB SCH (18:29)
[2016-04-05] MEDS: METOCLOPRAMIDE HCL INJECTION 10 MG/2 ML VIAL IVPB SCH (18:29)
[2016-04-05] MEDS ORDERED: ONDANSETRON 4 MG/2 ML VIAL IVPB PRN (19:14)
[2016-04-05] MEDS ORDERED: ACETAMINOPHEN 325 MG TABLET (FP) ONE (20:05)
[2016-04-05] MEDS ORDERED: HYDROmorphone HCL CARPU-JECT 1 MG/1 ML DISP.SYRIN IVPB ONE (20:19)
--- NOTE | 2016-04-05 20:27 | MSN ---
Admitting History and Physical - Admission Chief Complaint: Abdominal Pain History of Present Illness: 65 y/o female with pmhx of asthma, gastritis, spinal fracture with morphine pump in 2008, choelechoduodenostomy and cervical cancer with hysterectomy in 1994 who presents with severe radiating, constant abdominal pain. The pain radiates from her back to the anterior abdominal wall. She says she has had the pain since June 2015 when her morphine pump was replaced. Prior to that there were no complaints. She states it is effective her sleep and that she sleeps very little every night as a result. She was last seen for this in February 2016 at [facility] and was sent home with pain meds. She complains of very little stool production whenever she has to go to the bathroom but experienced an episode of diarrhea . She was seen by Dr. Wilcox this afternoon. Denies dizziness, sore throat, runny nose and cough. She says she has fever, chills, back pain, headache, chest pain, palpitations, SOB, abdominal pain, dysuria and freqency History Source: Patient Limitations to Obtaining History: No Limitations - Past Medical History Pulmonary: Yes: Asthma Gastrointestinal: Yes: Gastritis Reproductive: Yes: Other (Cervical cancer) ...: No - Past Surgical History Past Surgical History: Yes: Hysterectomy Additional Past Surgical History: Spine surgery, choelechoduodenostomy - Smoking History Smoking history: Former smoker Have you smoked in the past 12 months: Yes Aproximately how many cigarettes per day: 3 (days fro 1 pack for 14 years) If you are a former smoker, when did you quit?: 2000 - Alcohol/Substance Use Hx Alcohol Use: No Home Medications - Allergies Allergies/Adverse Reactions: Allergies Allergy/AdvReac Type Severity Reaction Status Date / Time No Known Allergies Allergy Verified 04/04/16 14:32 - Home Medications Home Medications: Ambulatory Orders Albuterol Sulfate Inhaler - [Ventolin Hfa Inhaler -] 2 inh PO Q4H PRN 04/05/16 Docusate Sodium [Colace -] 100 mg PO TID 04/05/16 Fluticasone Propionate [Flovent Diskus] 110 mcg IH BID 04/05/16 Gabapentin 600 mg PO TID 04/05/16 Loratadine 10 mg PO DAILY 04/05/16 Metoclopramide HCl [Reglan] 10 mg PO Q8H 04/05/16 Montelukast Na [Singulair -] 10 mg PO DAILY 04/05/16 [place]-3 Fatty Acids [[place]-3] 1,000 mg PO DAILY 04/05/16 Pantoprazole Sodium 40 mg PO DAILY 04/05/16 Review of Systems - Review of Systems Constitutional: reports: No Symptoms, Chills, Fever Eyes: reports: No Symptoms HENT: reports: No Symptoms Neck: reports: No Symptoms Cardiovascular: reports: Chest Pain, Palpitations, Shortness of Breath Respiratory: reports: SOB Gastrointestinal: reports: Abdominal Pain, Constipation, Diarrhea, Nausea, Vomiting Genitourinary: reports: Burning, Dysuria, Frequency Musculoskeletal: reports: Back Pain Integumentary: reports: Incision Neurological: reports: No Symptoms, Dizziness Physical Examination Vital Signs: Vital Signs Temperature 98.8 F 04/05/16 18:00 Pulse Rate 54 L 04/05/16 18:00 Respiratory Rate 20 04/05/16 18:00 Blood Pressure 131/73 04/05/16 18:00 O2 Sat by Pulse Oximetry (%) 99 04/05/16 14:51 Constitutional: Yes: Well Nourished, No Distress, Severe Distress Eyes: Yes: WNL, Conjunctiva Clear, EOM Intact HENT: Yes: WNL, Atraumatic, Normocephalic Neck: Yes: WNL, Supple, Trachea Midline Cardiovascular: Yes: WNL, Regular Rate and Rhythm Respiratory: Yes: Regular, Rhonchi (b/l) Gastrointestinal: Yes: Normal Bowel Sounds, Soft, Palpable Mass (Morphine pump) , Tenderness, Tenderness, Epigastrium, Vomiting Renal/: Yes: WNL Musculoskeletal: Yes: Back Pain Edema: No Wound/Incision: Yes: Clean/Dry Neurological: Yes: WNL, Alert, Oriented, Cran Nerves II-XII Intact Psychiatric: Yes: Alert, Oriented Labs: D-dimer 461 Two negative troponin UA negative Imaging - Results Chest X-ray: Report Reviewed, Image Reviewed Cat Scan: Report Reviewed EKG: Report Reviewed Assessment/Plan 65 year old female with significant PMH of Asthma, Gastritis, cervical cancer s/ p hysterectomy in 1994, cholescystectomy vertebral fracture on chronic pain meds (morphine pump) presented to the ED via EMS with the chief complaints of severe abdominal pain. # Abdominal pain Pain possibly secondary to her morphine pump placement ? Vertebral facture causing back pain with radiation to anterior abdominal wall Abd Pelvis CT showed no acute pathology Had complained of dysuria, increased frequency of urine associated with abdominal pain, UA negative for UTI Percocet Q6H PRN Pain management consult Levofloxacin IV 500mg Daily Flagyl IV Q8H Ceftriaxone for UTI symptoms Ondansatron for nausea Reglan for constipation # Chest pain Clinical symptoms less likely PE. Wells score 2 Elevated D Dimer most likely due to her previous malignancy # Asthma-Stable this admission Duoneb PRN # FEN IV NS @ 200 mls/hr Electrolytes to be repeated tomorrow NPO except for meds. # Prophylaxis For DVT- Enoxaparin For GI- On Protonix Dr. Al spoke with Dr. Wilcox. Patient is well known to Dr. Wilcox, has frequent blocking of pancreatic duct, had recent ERCP done at [facility] by Dr. Newsome. Plan is to keep her at NPO, IV fluids @ 200mls, Levofloxacin, Flagyl.
[2016-04-05] MEDS: cefTRIAXone 1 GM/50 ML BAG (PRE-DOCKED) IVPB SCH (22:53)
[2016-04-06] MEDS: ONDANSETRON 4 MG/2 ML VIAL IVPB SCH ×4 (00:04→08:00)
[2016-04-06] MEDS ORDERED: HYDROmorphone HCL CARPU-JECT 1 MG/1 ML DISP.SYRIN IVPB ONE (02:20)
[2016-04-06] MEDS: METRONIDAZOLE 500 MG PREMIXED 100 ML IVPB SCH ×3 (03:36→17:26)
[2016-04-06] MEDS: METOCLOPRAMIDE HCL INJECTION 10 MG/2 ML VIAL IVPB SCH ×3 (04:45→17:27)
[2016-04-06] MEDS ORDERED: ONDANSETRON 4 MG/2 ML VIAL IVPB PRN (06:00)
--- NOTE | 2016-04-06 06:48 | HOSP ---
Physical Examination Vital Signs: Vital Signs Temperature 100 F H 04/05/16 22:00 Pulse Rate 86 04/05/16 22:00 Respiratory Rate 18 04/05/16 22:00 Blood Pressure 102/78 04/05/16 22:00 O2 Sat by Pulse Oximetry (%) 99 04/05/16 14:51 Hospitalist Encounter Assessment: I was paged by the nurse as patient was complaining of severe abdominal pain. On further questioning, patient mentioned she has excruciating pain over the suprapubic region, 10/10 in intensity, cramping in nature, radiating towards her back. Vitals: T-98 F HR-90 bpm BP-139/87 mmHg GENERAL: Patient lying in bed in supine position, Awake, alert, and fully oriented, in severe abdominal pain. HEAD: Normal with no signs of trauma. EYES: EOM intact, no pallor or icterus. EARS, NOSE, THROAT: Ears normal. Moist mucous membranes. NECK: Normal range of motion, supple. LUNGS: Breath sounds equal, clear to auscultation bilaterally. No wheezes, and no crackles. No accessory muscle use. HEART: Regular rate and rhythm, normal S1 and S2 without murmur, rub or gallop. ABDOMEN: Surgical scar clark +, Morphine pump placed on the left upper quadrant, Soft, tenderness over the suprapubic area, not distended, normoactive bowel sounds, no guarding, no rebound, no masses. hepatomegaly or splenomegaly couldn't be appreciated. MUSCULOSKELETAL: Normal range of motion at all joints. No bony deformities or tenderness. No CVA tenderness. UPPER EXTREMITIES: 2+ pulses, warm, well-perfused. No cyanosis. No clubbing. No peripheral edema. LOWER EXTREMITIES: 2+ pulses, warm, well-perfused. No calf tenderness. No peripheral edema. NEUROLOGICAL: Cranial nerves II-XII intact. Normal speech. Gait couldn't be observed. PSYCHIATRIC: Cooperative. Good eye contact. Appropriate mood and affect. SKIN: Warm, dry, normal turgor, no rashes or lesions noted. Plan: 1. 1mg of Dilaudid was given. Symptomatic relief after few minutes. 2. Ordered Lipase and Amylase. Second encounter. Patient complained of severe abdominal pain, similar to previous symptoms. Vitals: T-100.7 F rectal Will speak with the primary attending and send further lab work if needed. Would consider close monitoring for abdominal pain. Patient may have the abdominal pain due to adhesions (morphine pump placement) vs clogged pancreatic duct (patient had recent ERCP done) vs IBS. Case discussed with Dr. Andres. Visit type - Emergency Visit Emergency Visit: Yes ED Registration Date: 04/05/16 Care time: The patient presented to the Emergency Department on the above date and was hospitalized for further evaluation of their emergent condition. - New Patient This patient is new to me today: No - Critical Care Critical Care patient: No
[2016-04-06 07:10] LABS: BASOPHIL 0.4 % (0-2.0); EOSINOPHIL 0.1 % (0-4.5); MCH 29.8 pg (25.7-33.7); MCHC 34.2 g/dl (32.0-36.0); MEAN PLT VOLUME 9.2 fl (7.5-11.1); NEUTROPHILS 72.8 % (42.8-82.8); PLATELET COUNT 160 K/MM3 (134-434); RDW 13.1 % (11.6-15.6); WHITE BLOOD COUNT 5.2 K/mm3 (4.0-10.0)
[2016-04-06 07:27] LABS: INR 1.28 (0.82-1.09); PROTHROMBIN TIME (PATIENT) 14.1 SEC (9.98-11.88)
[2016-04-06 07:39] LABS: ANION GAP 9 (8-16); CALCIUM 8.1 mg/dL (8.5-10.1); CO2 24 mmol/L (21-32); GLUCOSE,RANDOM 91 mg/dL (74-106)
[2016-04-06 07:42] LABS: ALK PHOS 67 U/L (45-117); BILIRUBIN,TOTAL 0.4 mg/dL (0.2-1.0); CREATININE 0.7 mg/dL (0.55-1.02); SGOT/AST 12 U/L (15-37); SGPT/ALT 15 U/L (12-78); TOT PROT 5.5 g/dl (6.4-8.2)
--- NOTE | 2016-04-06 08:55 | MSN ---
Progress Note (SOAP) - Subjective Chief Complaint: Abdominal pain History of Present Illness: Patient is complaining of nausea, abdominal pain, headache, back pain, burning with urination and multiple episodes of non-bloody diarrhea - Current Medications Current Medications: Active Medications Albuterol/Ipratropium (Duoneb -) 1 amp NEB Q6H PRN PRN Reason: SHORTNESS OF BREATH Last Admin: 04/05/16 22:45 Dose: 1 amp Ceftriaxone Sodium (Rocephin 1gm Ivpb (Pre-Docked)) 1 gm IVPB DAILY [facility] Last Admin: 04/05/16 22:53 Dose: 1 gm Enoxaparin Sodium (Lovenox -) 40 mg SQ DAILY [facility] Last Admin: 04/05/16 09:37 Dose: 40 mg Pantoprazole Sodium (Protonix 40mg Ivpb (Pre-Docked)) 100 mls @ 200 mls/hr IVPB DAILY [facility] Last Admin: 04/05/16 09:27 Dose: 200 mls/hr Metronidazole (Flagyl 500mg Premixed Ivpb -) 100 mls @ 100 mls/hr IVPB Q8H-IV ALDA Last Admin: 04/06/16 03:36 Dose: 100 mls/hr Sodium Chloride (Normal Saline -) 1,000 mls @ 200 mls/hr IV ASDIR [facility] Last Admin: 04/05/16 08:23 Dose: 200 mls/hr Metoclopramide HCl (Reglan Injection -) 10 mg IVPB Q8H [facility] Last Admin: 04/06/16 04:45 Dose: Not Given Ondansetron HCl (Zofran Injection) 4 mg IVPB Q4H PRN PRN Reason: NAUSEA AND/OR VOMITING Oxycodone HCl (Roxicodone -) 5 mg PO Q6H PRN PRN Reason: PAIN - Objective Vital Signs: Vital Signs Temperature 99.3 F 04/06/16 06:00 Pulse Rate 78 04/06/16 06:00 Respiratory Rate 04/06/16 06:00 Blood Pressure 128/71 04/06/16 06:00 O2 Sat by Pulse Oximetry (%) 99 04/05/16 14:51 Constitutional: Yes: Well Nourished, Anxious, Moderate Distress Eyes: Yes: WNL, Conjunctiva Clear, EOM Intact HENT: Yes: WNL, Atraumatic, Normocephalic Cardiovascular: Yes: WNL, Regular Rate and Rhythm, S1, S2 Respiratory: Yes: Regular, Rhonchi Gastrointestinal: Yes: WNL, Normal Bowel Sounds, Soft, Palpable Mass (Morphine pump), Tenderness Musculoskeletal: Yes: Back Pain Extremities: Yes: WNL Neurological: Yes: WNL, Alert, Oriented Psychiatric: Yes: WNL, Alert, Oriented Labs Lab Results: CBC, BMP 04/06/16 06:35 04/06/16 06:35 New labs pending C.diff antigen/toxin pending Assessment/Plan 65 year old female with significant PMH of Asthma, Gastritis, cervical cancer s/ p hysterectomy in 1994, vertebral fracture on chronic pain meds (morphine pump June 2015) presented to the ED via EMS with the chief complaints of severe abdominal pain. Abdominal pain -Pain possibly secondary to her morphine pump placement -GI consult-etiology unclear r/o biliary colic, bacterial overgrowth, IBS -Percocet Q6H PRN -Pain management consult -Rocephin 1g/50ml -Flagyl IV Q8H Asthma-Stable this admission -Duoneb PRN Diarrhea C. diff toxin and antigen pending FEN -IV NS @ 200 mls/hr -Labs pending -Clear liquid diet Prophylaxis DVT- Enoxaparin GI- On Protonix Disposition; med surg
[2016-04-06] MEDS: PANTOPRAZOLE SODIUM 100 ML IVPB SCH (09:44)
[2016-04-06] MEDS: SODIUM CHLORIDE 1,000 ML IV SCH ×2 (09:44→15:23)
[2016-04-06] MEDS: ENOXAPARIN NA (PORCINE) 40 MG/0.4 ML DISP.SYRIN SQ SCH (09:45)
[2016-04-06] MEDS ORDERED: CEFTRIAXONE 1 GM in DEXTROSE 5%-WATER - 50 ML IVPB SCH (10:00)
[2016-04-06] MEDS: cefTRIAXone 1 GM/50 ML BAG (PRE-DOCKED) IVPB SCH (10:52)
--- NOTE | 2016-04-06 15:32 | PN ---
Physical Exam: SUBJECTIVE: Patient seen and examined Continues to have pain. No fever or chills. OBJECTIVE: Vital Signs Period Temp Pulse Resp BP Sys/Armenta Pulse Ox Last 24 Hr 98 F-100 F 54-90 18-20 102-141/71-87 96 GENERAL: The patient is awake, alert, and fully oriented, in no acute distress. HEAD: Normal with no signs of trauma. EYES: PERRL, extraocular movements intact, sclera anicteric, conjunctiva clear. ENT: Ears normal, oropharynx clear without exudates, moist mucous membranes. NECK: Trachea midline, full range of motion, supple. LUNGS: Breath sounds equal, clear to auscultation bilaterally, no wheezes, no crackles, no accessory muscle use. HEART: Regular rate and rhythm, S1, S2 without murmur, rub or gallop. ABDOMEN: Soft, positive for diffuse tenderness , nondistended, normoactive bowel sounds, voluntary guarding, no rebound, no hepatosplenomegaly, no masses. EXTREMITIES: 2+ pulses, warm, well-perfused, no edema. NEUROLOGICAL: Cranial nerves II through XII grossly intact. Normal speech, gait not observed. PSYCH: Normal mood, normal affect. SKIN: Warm, dry, normal turgor, no rashes or lesions noted Laboratory Results - last 24 hr 04/06/16 04/06/16 04/06/16 06:35 06:35 06:35 WBC 5.2 D RBC 3.35 L D Hgb 10.0 L D Hct 29.2 L D MCV 87.0 MCHC 34.2 RDW 13.1 Plt Count 160 D MPV 9.2 Neutrophils % 72.8 Lymphocytes % 21.0 D Monocytes % 5.7 Eosinophils % 0.1 D Basophils % 0.4 INR 1.28 H Sodium 142 Potassium 4.2 Chloride 109 H Carbon Dioxide 24 Anion Gap 9 BUN 13 D Creatinine 0.7 Creat Clearance w eGFR > 60 Random Glucose 91 D Calcium 8.1 L Total Bilirubin 0.4 D Direct Bilirubin AST 12 L D ALT 15 Alkaline Phosphatase 67 D Total Protein 5.5 L D Albumin 3.0 L D 04/06/16 06:35 WBC RBC Hgb Hct MCV MCHC RDW Plt Count MPV Neutrophils % Lymphocytes % Monocytes % Eosinophils % Basophils % INR Sodium Potassium Chloride Carbon Dioxide Anion Gap BUN Creatinine Creat Clearance w eGFR Random Glucose Calcium Total Bilirubin Direct Bilirubin 0.1 AST ALT Alkaline Phosphatase Total Protein Albumin Active Medications Generic Name Dose Route Start Last Admin Trade Name Freq PRN Reason Stop Dose Admin Albuterol/Ipratropium 1 amp 04/05/16 03:00 04/05/16 22:45 Duoneb - NEB 1 amp Q6H PRN Administration SHORTNESS OF BREATH Ceftriaxone Sodium 1 gm 04/05/16 19:30 04/06/16 10:52 Rocephin 1gm Ivpb (Pre-Docked) IVPB 1 gm DAILY [facility] Administration Enoxaparin Sodium 40 mg 04/05/16 10:00 04/06/16 09:45 Lovenox - SQ 40 mg DAILY [facility] Administration Pantoprazole Sodium 100 mls @ 200 mls/hr 04/05/16 10:00 04/06/16 09:44 Protonix 40mg Ivpb (Pre-Docked) IVPB 200 mls/hr DAILY [facility] Administration Metronidazole 100 mls @ 100 mls/hr 04/05/16 07:45 04/06/16 09:39 Flagyl 500mg Premixed Ivpb - IVPB 100 mls/hr Q8H-IV ALDA Administration Sodium Chloride 1,000 mls @ 200 mls/hr 04/05/16 07:39 04/06/16 15:23 Normal Saline - IV 200 mls/hr ASDIR ALDA Administration Metoclopramide HCl 10 mg 04/05/16 18:15 04/06/16 10:54 Reglan Injection - IVPB 10 mg Q8H ALDA Administration Ondansetron HCl 4 mg 04/05/16 19:14 Zofran Injection IVPB Q4H PRN NAUSEA AND/OR VOMITING Oxycodone HCl 5 mg 04/05/16 05:43 Roxicodone - PO Q6H PRN PAIN ASSESSMENT/PLAN: 65 year old female with significant PMH of Asthma, Gastritis, cervical cancer s/ p hysterectomy in 1994, vertebral fracture on chronic pain meds (morphine pump) presented to the ED via EMS with the chief complaints of severe abdominal pain. # Abdominal pain due to her morphine pump placement x 1 year ago -GI consult pending ,Oxycodone Q6H PRN , Pain management consult On IV antibiotic as per ;Flagyl IV Q8H and Rocephin Asthma-Stable this admission DVT Px Enoxaparin GI- On Protonix Visit type - Emergency Visit Emergency Visit: Yes ED Registration Date: 04/05/16 Care time: The patient presented to the Emergency Department on the above date and was hospitalized for further evaluation of their emergent condition. - New Patient This patient is new to me today: No - Critical Care Critical Care patient: No
--- NOTE | 2016-04-06 15:35 | EKG ---
Test Reason : Blood Pressure : / mmHG Vent. Rate : 058 BPM Atrial Rate : 058 BPM P-R Int : 174 ms QRS Dur : 080 ms QT Int : 432 ms P-R-T Axes : 071 -01 034 degrees QTc Int : 424 ms SINUS BRADYCARDIA Confirmed by PADDY HUI MD ([id number]) on 04/06/2016 3:35:26 PM Referred By: KRISTEN BAPTISTE Confirmed By:PADDY HUI MD
--- NOTE | 2016-04-06 18:41 | CONSULT ---
Consult - text type - Consultation Consultation Note: CC: Abdominal and suprpubic pain HPI: This is a 65 yo woman with history of multiple vertebral compression fractures who had subsequently undergone an intrathecal morphine pump placement. She had a Morphine pump for 6 years that worked great for her. She underwent a pump revision last year and reports have had worse pain since the revision of the pump. She also reports a possible Migration of the pump inferiorly. She reports having had a suprpubic pain and abdominal pain since the revision of the pump but her symptoms got significantly worse two weeks ago. She denies having had any withdrawal symptoms since the pump revision. PMH: Cholelithiasis PSH: Choledochojujenostomy A: 1. Chronic Low back pain 2. Chronic Abdominal pain P: 1. Continue oxycodone at 5mg Q6hrs PRN for pain as it is helping her. 2. I advised her to follow up with her pain mgmt doctor on outpt basis for a possible dose adjustment in intrathecal pump. I do not manage intrathecal pumps and oral medication for chronic pain on outpt basis . 3. She denies having had any withdrawal symptoms from Morphine so the pump is likely functional and just may need a dose optimization per the discretion of her pain mgmt physician. 4. Thank you for the consult. Please call with questions.
[2016-04-07] MEDS: SODIUM CHLORIDE 1,000 ML IV SCH ×4 (00:04→21:15)
[2016-04-07] MEDS: METRONIDAZOLE 500 MG PREMIXED 100 ML IVPB SCH ×3 (02:00→17:15)
[2016-04-07] MEDS: METOCLOPRAMIDE HCL INJECTION 10 MG/2 ML VIAL IVPB SCH ×3 (02:52→18:09)
[2016-04-07 08:27] LABS: AMYLASE 114 U/L (25-115)
[2016-04-07] MEDS: PANTOPRAZOLE SODIUM 100 ML IVPB SCH (09:20)
[2016-04-07] MEDS: ENOXAPARIN NA (PORCINE) 40 MG/0.4 ML DISP.SYRIN SQ SCH (09:22)
[2016-04-07] MEDS: cefTRIAXone 1 GM/50 ML BAG (PRE-DOCKED) IVPB SCH (11:26)
--- NOTE | 2016-04-07 14:39 | PN ---
GI Progress Note Subjective: abdominal pain less, diarrhea secondary to oral contrast - Objective Vital Signs: Vital Signs Temperature 98.0 F 04/07/16 13:53 Pulse Rate 91 H 04/07/16 13:53 Respiratory Rate 20 04/07/16 13:53 Blood Pressure 120/72 04/07/16 10:00 O2 Sat by Pulse Oximetry (%) 96 04/07/16 09:00 Constitutional: Well Nourished Eyes: Yes: Conjunctiva Clear HENT: Yes: Atraumatic Neck: Yes: Trachea Midline Cardiovascular: Yes: Regular Rate and Rhythm Respiratory: Yes: CTA Bilaterally ...Palpate: Yes: Soft. No: Firm/Rigid, Guarding, Hepatomegaly, Mass, Pulsatile Mass, Splenomegaly, Tenderness, Tenderness, Epigastium Labs: CBC, BMP 04/06/16 06:35 04/06/16 06:35 INR, PTT INR 1.28 (0.82-1.09) H 04/06/16 06:35 Problem List - Problems (1) Abdominal pain Assessment/Plan: less, ? biliary colic R> advance that diet, low reside diet Code(s): R10.9 - UNSPECIFIED ABDOMINAL PAIN
--- NOTE | 2016-04-07 16:03 | PN ---
Physical Exam: SUBJECTIVE: Patient seen and examined Patient is comfortable but still having some abdominal pain, Regmarlon is helping. OBJECTIVE: Vital Signs Period Temp Pulse Resp BP Sys/Armenta Pulse Ox Last 24 Hr 98.0 F-98.4 F 70-91 18-20 120-122/58-72 96-96 GENERAL: The patient is awake, alert, and fully oriented, in no mild distress. HEAD: Normal with no signs of trauma. EYES: PERRL, extraocular movements intact, sclera anicteric, conjunctiva clear. ENT: Ears normal, oropharynx clear without exudates, moist mucous membranes. NECK: Trachea midline, full range of motion, supple. LUNGS: Breath sounds equal, clear to auscultation bilaterally, no wheezes, no crackles, no accessory muscle use. HEART: Regular rate and rhythm, S1, S2 without murmur, rub or gallop. ABDOMEN: Soft, positive for tenderness on palpation , positive for morphine pump , normoactive bowel sounds, no guarding, no rebound, no hepatosplenomegaly, no masses. EXTREMITIES: 2+ pulses, warm, well-perfused, no edema. NEUROLOGICAL: Cranial nerves II through XII grossly intact. Normal speech. PSYCH: Normal mood, normal affect. SKIN: Warm, dry, normal turgor, no rashes or lesions noted Laboratory Results - last 24 hr 04/07/16 06:30 Total Amylase 114 Lipase 590 H Active Medications Generic Name Dose Route Start Last Admin Trade Name Freq PRN Reason Stop Dose Admin Albuterol/Ipratropium 1 amp 04/05/16 03:00 04/05/16 22:45 Duoneb - NEB 1 amp Q6H PRN Administration SHORTNESS OF BREATH Ceftriaxone Sodium 1 gm 04/05/16 19:30 04/07/16 11:26 Rocephin 1gm Ivpb (Pre-Docked) IVPB 1 gm DAILY [facility] Administration Enoxaparin Sodium 40 mg 04/05/16 10:00 04/07/16 09:22 Lovenox - SQ 40 mg DAILY [facility] Administration Pantoprazole Sodium 100 mls @ 200 mls/hr 04/05/16 10:00 04/07/16 09:20 Protonix 40mg Ivpb (Pre-Docked) IVPB 200 mls/hr DAILY [facility] Administration Metronidazole 100 mls @ 100 mls/hr 04/05/16 07:45 04/07/16 10:18 Flagyl 500mg Premixed Ivpb - IVPB 100 mls/hr Q8H-IV ALDA Administration Sodium Chloride 1,000 mls @ 200 mls/hr 04/05/16 07:39 04/07/16 14:24 Normal Saline - IV 200 mls/hr ASDIR ALDA Administration Metoclopramide HCl 10 mg 04/05/16 18:15 04/07/16 11:37 Reglan Injection - IVPB 10 mg Q8H ALDA Administration Ondansetron HCl 4 mg 04/05/16 19:14 Zofran Injection IVPB Q4H PRN NAUSEA AND/OR VOMITING Oxycodone HCl 5 mg 04/05/16 05:43 Roxicodone - PO Q6H PRN PAIN ASSESSMENT/PLAN: Patient is a 65 year old female with significant PMHx of Asthma, Gastritis, cervical cancer s/p hysterectomy in 1994, vertebral fracture on chronic pain meds (morphine pump) presented to the ED via EMS with the chief complaints of severe abdominal pain. # Acute Abdominal pain ; per patient started a year ago post placement of her morphine pump as per patient. -GI consult Dr. Wilcox appreciated , Oxycodone po Q6H PRN as per , Pain management consult appreciated. On IV antibiotic as per ;Flagyl IV Q8H and Rocephin IV daily. will continue for now. # Asthma-Stable will continue home meds. DVT Px Enoxaparin GI- On Protonix Visit type - Emergency Visit Emergency Visit: Yes ED Registration Date: 04/05/16 Care time: The patient presented to the Emergency Department on the above date and was hospitalized for further evaluation of their emergent condition. - New Patient This patient is new to me today: No - Critical Care Critical Care patient: No
[2016-04-08] MEDS: METRONIDAZOLE 500 MG PREMIXED 100 ML IVPB SCH ×3 (01:20→17:21)
[2016-04-08] MEDS: METOCLOPRAMIDE HCL INJECTION 10 MG/2 ML VIAL IVPB SCH ×3 (02:41→17:21)
[2016-04-08] MEDS: SODIUM CHLORIDE 1,000 ML IV SCH ×2 (03:54→09:05)
[2016-04-08] MEDS: PANTOPRAZOLE SODIUM 100 ML IVPB SCH (09:01)
[2016-04-08] MEDS: ENOXAPARIN NA (PORCINE) 40 MG/0.4 ML DISP.SYRIN SQ SCH (09:58)
[2016-04-08] MEDS: cefTRIAXone 1 GM/50 ML BAG (PRE-DOCKED) IVPB SCH (09:59)
--- NOTE | 2016-04-08 15:42 | PN ---
Teaching Attending Note Name of Resident: Svetlana Duncan ATTENDING PHYSICIAN STATEMENT I saw and evaluated the patient. I reviewed the resident's note and discussed the case with the resident. I agree with the resident's findings and plan as documented. SUBJECTIVE: Still is having some abdominal pain magdiel.at nights. She is experiencing less nausea and vomiting. No headache. OBJECTIVE: Vital Signs Temperature 98.5 F 04/08/16 09:41 Pulse Rate 82 04/08/16 09:41 Respiratory Rate 20 04/08/16 09:41 Blood Pressure 147/82 04/08/16 09:41 O2 Sat by Pulse Oximetry (%) 96 04/08/16 09:00 GENERAL: The patient is awake, alert, and fully oriented, in no mild distress. HEAD: Normal with no signs of trauma. EYES: PERRL, extraocular movements intact, sclera anicteric, conjunctiva clear. ENT: Ears normal, oropharynx clear without exudates, moist mucous membranes. NECK: Trachea midline, full range of motion, supple. LUNGS: Breath sounds equal, clear to auscultation bilaterally, no wheezes, no crackles, no accessory muscle use. HEART: Regular rate and rhythm, S1, S2 without murmur, rub or gallop. ABDOMEN: Soft, positive for tenderness on palpation , positive for morphine pump , normoactive bowel sounds, no guarding, no rebound, no hepatosplenomegaly, no masses. EXTREMITIES: 2+ pulses, warm, well-perfused, no edema. NEUROLOGICAL: Cranial nerves II through XII grossly intact. Normal speech. PSYCH: Normal mood, normal affect. SKIN: Warm, dry, normal turgor, no rashes or lesions noted CBCD WBC 5.2 K/mm3 (4.0-10.0) D 04/06/16 06:35 RBC 3.35 M/mm3 (3.60-5.2) L D 04/06/16 06:35 Hgb 10.0 GM/dL (10.7-15.3) L D 04/06/16 06:35 Hct 29.2 % (32.4-45.2) L D 04/06/16 06:35 MCV 87.0 fl (80-96) 04/06/16 06:35 MCHC 34.2 g/dl (32.0-36.0) 04/06/16 06:35 RDW 13.1 % (11.6-15.6) 04/06/16 06:35 Plt Count 160 K/MM3 (134-434) D 04/06/16 06:35 MPV 9.2 fl (7.5-11.1) 04/06/16 06:35 CMP Sodium 142 mmol/L (136-145) 04/06/16 06:35 Potassium 4.2 mmol/L (3.5-5.1) 04/06/16 06:35 Chloride 109 mmol/L (98-107) H 04/06/16 06:35 Carbon Dioxide 24 mmol/L (21-32) 04/06/16 06:35 Anion Gap 9 (8-16) 04/06/16 06:35 BUN 13 mg/dL (7-18) D 04/06/16 06:35 Creatinine 0.7 mg/dL (0.55-1.02) 04/06/16 06:35 Creat Clearance w eGFR > 60 (>60) 04/06/16 06:35 Random Glucose 91 mg/dL (74-106) D 04/06/16 06:35 Calcium 8.1 mg/dL (8.5-10.1) L 04/06/16 06:35 Total Bilirubin 0.4 mg/dL (0.2-1.0) D 04/06/16 06:35 AST 12 U/L (15-37) L D 04/06/16 06:35 ALT 15 U/L (12-78) 04/06/16 06:35 Alkaline Phosphatase 67 U/L (45-117) D 04/06/16 06:35 Total Protein 5.5 g/dl (6.4-8.2) L D 04/06/16 06:35 Albumin 3.0 g/dl (3.4-5.0) L D 04/06/16 06:35 CARDIAC ENZYMES Creatine Kinase 51 IU/L (26-192) 04/05/16 07:54 Troponin I 0.04 ng/ml (0.00-0.05) 04/05/16 07:54 Current Medications Generic Name Dose Route Start Last Admin Trade Name Freq PRN Reason Stop Dose Admin Albuterol/Ipratropium 1 amp 04/05/16 03:00 04/05/16 22:45 Duoneb - NEB 1 amp Q6H PRN Administration SHORTNESS OF BREATH Ceftriaxone Sodium 1 gm 04/05/16 19:30 04/08/16 09:59 Rocephin 1gm Ivpb (Pre-Docked) IVPB 1 gm DAILY [facility] Administration Enoxaparin Sodium 40 mg 04/05/16 10:00 04/08/16 09:58 Lovenox - SQ 40 mg DAILY [facility] Administration Pantoprazole Sodium 100 mls @ 200 mls/hr 04/05/16 10:00 04/08/16 09:01 Protonix 40mg Ivpb (Pre-Docked) IVPB 200 mls/hr DAILY [facility] Administration Metronidazole 100 mls @ 100 mls/hr 04/05/16 07:45 04/08/16 09:58 Flagyl 500mg Premixed Ivpb - IVPB 100 mls/hr Q8H-IV ALDA Administration Sodium Chloride 1,000 mls @ 200 mls/hr 04/05/16 07:39 04/08/16 09:05 Normal Saline - IV 200 mls/hr ASDIR ALDA Administration Metoclopramide HCl 10 mg 04/05/16 18:15 04/08/16 09:58 Reglan Injection - IVPB 10 mg Q8H ALDA Administration Ondansetron HCl 4 mg 04/05/16 19:14 Zofran Injection IVPB Q4H PRN NAUSEA AND/OR VOMITING Sucralfate 1 gm 04/08/16 16:30 Carafate Oral Suspension - PO ACHS [facility] Medication Instructions Recorded Albuterol Sulfate Inhaler - 2 inh PO Q4H PRN 04/05/16 [Ventolin Hfa Inhaler -] Docusate Sodium [Colace -] 100 mg PO TID 04/05/16 Fluticasone Propionate [Flovent 110 mcg IH BID 04/05/16 Diskus] Gabapentin 600 mg PO TID 04/05/16 Loratadine 10 mg PO DAILY 04/05/16 Metoclopramide HCl [Reglan] 10 mg PO Q8H 04/05/16 Montelukast Na [Singulair -] 10 mg PO DAILY 04/05/16 [place]-3 Fatty Acids [[place]-3] 1,000 mg PO DAILY 04/05/16 Pantoprazole Sodium 40 mg PO DAILY 04/05/16 ASSESSMENT/PLAN: Patient is a 65 year old female with significant PMHx of Asthma, Gastritis, cervical cancer s/p hysterectomy in 1994, vertebral fracture on chronic pain meds (morphine pump) presented to the ED via EMS with the chief complaints of severe abdominal pain. # Acute Abdominal pain improving as per patient continues to have mild diarrhea ; GI consult Dr. Wilcox appreciated , Oxycodone po Q6H PRN as per , Pain management consult appreciated. On IV antibiotic as per ; Flagyl IV Q8H and Rocephin IV daily. will continue for now. Added Carafate since patient continues to have abdominal pain most likely having acute PUD will add carafate. # Asthma-Stable will continue home meds. DVT Px Enoxaparin GI- On Protonix
--- NOTE | 2016-04-08 15:43 | PN ---
Physical Exam: SUBJECTIVE: Patient seen and examined. She is complaining of back pain and abdominal pain. She also complaints of diarrhea and loss of appetite.. Denies blood in stool, chest pain, SOB. OBJECTIVE: Vital Signs Period Temp Pulse Resp BP Sys/Armenta Pulse Ox Last 24 Hr 98 F-98.6 F 82-92 20-20 130-152/70-84 96-96 GENERAL: The patient is awake, alert, and fully oriented, in no acute distress. HEAD: Normal with no signs of trauma. EYES: PERRL, extraocular movements intact, sclera anicteric, conjunctiva clear. No ptosis. ENT: Ears normal, nares patent, oropharynx clear without exudates, moist mucous membranes. NECK: Trachea midline, full range of motion, supple. LUNGS: Breath sounds equal, clear to auscultation bilaterally, no wheezes, no crackles, no accessory muscle use. HEART: Regular rate and rhythm, S1, S2 without murmur, rub or gallop. ABDOMEN: Soft, tender to palpation in epigastrium, nondistended, normoactive bowel sounds, no guarding, no rebound, no hepatosplenomegaly, no masses. EXTREMITIES: 2+ pulses, warm, well-perfused, no edema. NEUROLOGICAL: Cranial nerves II through XII grossly intact. Normal speech, gait not observed. PSYCH: Normal mood, normal affect. SKIN: Warm, dry, normal turgor, no rashes or lesions noted Active Medications Generic Name Dose Route Start Last Admin Trade Name Freq PRN Reason Stop Dose Admin Albuterol/Ipratropium 1 amp 04/05/16 03:00 04/05/16 22:45 Duoneb - NEB 1 amp Q6H PRN Administration SHORTNESS OF BREATH Ceftriaxone Sodium 1 gm 04/05/16 19:30 04/08/16 09:59 Rocephin 1gm Ivpb (Pre-Docked) IVPB 1 gm DAILY ALDA Administration Enoxaparin Sodium 40 mg 04/05/16 10:00 04/08/16 09:58 Lovenox - SQ 40 mg DAILY ALDA Administration Pantoprazole Sodium 100 mls @ 200 mls/hr 04/05/16 10:00 04/08/16 09:01 Protonix 40mg Ivpb (Pre-Docked) IVPB 200 mls/hr DAILY ALDA Administration Metronidazole 100 mls @ 100 mls/hr 04/05/16 07:45 04/08/16 09:58 Flagyl 500mg Premixed Ivpb - IVPB 100 mls/hr Q8H-IV ALDA Administration Sodium Chloride 1,000 mls @ 200 mls/hr 04/05/16 07:39 04/08/16 09:05 Normal Saline - IV 200 mls/hr ASDIR ALDA Administration Metoclopramide HCl 10 mg 04/05/16 18:15 04/08/16 09:58 Reglan Injection - IVPB 10 mg Q8H ALDA Administration Ondansetron HCl 4 mg 04/05/16 19:14 Zofran Injection IVPB Q4H PRN NAUSEA AND/OR VOMITING Sucralfate 1 gm 04/08/16 16:30 Carafate Oral Suspension - PO ACHS ALDA ASSESSMENT/PLAN: 65 year old female with significant PMH of Asthma, Gastritis, cervical cancer s/ p hysterectomy in 1994, vertebral fracture on chronic pain meds (morphine pump) presented to the ED via EMS with the chief complaints of severe abdominal pain. She is admitted to med surg. Abdominal pain: -Pain possibly secondary to her morphine pump placement -GI: Dr. Wilcox consulted -Pain management consulted, will f/u as outpatient also Morphine pump adjustment -Percocet Q6H PRN -Levofloxacin IV 500mg Daily changed to Rocephin today is day 4 -Flagyl IV Q8H day 4 - Lupus anticoagulant pending - added Carafate oral suspension Diarrhea; -two small watery BM today -C.Difficile positive for antigen, not toxin -lactose restricted diet Asthma-Stable this admission -Duoneb PRN FEN -IV NS stopped -diet changed to lactulose restricted diet Prophylaxis DVT- on Enoxaparin GI- On Protonix Disposition; med surg Problem List - Problems (1) Abdominal pain Code(s): R10.9 - UNSPECIFIED ABDOMINAL PAIN Visit type - Emergency Visit Emergency Visit: Yes ED Registration Date: 04/05/16 Care time: The patient presented to the Emergency Department on the above date and was hospitalized for further evaluation of their emergent condition. - New Patient This patient is new to me today: No - Critical Care Critical Care patient: No - Discharge Referral Referred to [facility] Med P.C.: No
[2016-04-08] MEDS: SUCRALFATE 1 GM/10 ML UNIT DOSE CUPS PO SCH ×2 (17:21→22:18)
[2016-04-09] MEDS: METRONIDAZOLE 500 MG PREMIXED 100 ML IVPB SCH ×3 (01:25→17:46)
[2016-04-09] MEDS: METOCLOPRAMIDE HCL INJECTION 10 MG/2 ML VIAL IVPB SCH ×3 (02:11→17:55)
[2016-04-09] MEDS: SUCRALFATE 1 GM/10 ML UNIT DOSE CUPS PO SCH ×3 (06:39→16:24)
--- NOTE | 2016-04-09 08:41 | MSN ---
Progress Note (SOAP) - Subjective Chief Complaint: Abdominal pain History of Present Illness: I saw and examined the patient. She is still complaining of diffuse pain especially on palpation in the epigastric and RUQ area. She is complaining of nausea with headache and small amounts of vomiting. Patient states the ab pain has improved. Diarrhea has improved but she says it is still present and that it is dark but denies blood. It has been this way since last week when she had a CT done. - Current Medications Current Medications: Active Medications Albuterol/Ipratropium (Duoneb -) 1 amp NEB Q6H PRN PRN Reason: SHORTNESS OF BREATH Last Admin: 04/05/16 22:45 Dose: 1 amp Ceftriaxone Sodium (Rocephin 1gm Ivpb (Pre-Docked)) 1 gm IVPB DAILY [facility] Last Admin: 04/08/16 09:59 Dose: 1 gm Enoxaparin Sodium (Lovenox -) 40 mg SQ DAILY [facility] Last Admin: 04/08/16 09:58 Dose: 40 mg Pantoprazole Sodium (Protonix 40mg Ivpb (Pre-Docked)) 100 mls @ 200 mls/hr IVPB DAILY [facility] Last Admin: 04/08/16 09:01 Dose: 200 mls/hr Metronidazole (Flagyl 500mg Premixed Ivpb -) 100 mls @ 100 mls/hr IVPB Q8H-IV ALDA Last Admin: 04/09/16 01:25 Dose: 100 mls/hr Metoclopramide HCl (Reglan Injection -) 10 mg IVPB Q8H [facility] Last Admin: 04/09/16 02:11 Dose: 10 mg Ondansetron HCl (Zofran Injection) 4 mg IVPB Q4H PRN PRN Reason: NAUSEA AND/OR VOMITING Last Admin: 04/08/16 22:25 Dose: 4 mg Sucralfate (Carafate Oral Suspension -) 1 gm PO ACHS [facility] Last Admin: 04/09/16 06:39 Dose: 1 gm - Objective Vital Signs: Vital Signs Temperature 98.1 F 04/09/16 05:00 Pulse Rate 79 04/09/16 05:00 Respiratory Rate 16 04/08/16 22:17 Blood Pressure 150/81 04/09/16 05:00 O2 Sat by Pulse Oximetry (%) 96 01/22/17 22:00 Constitutional: Yes: Well Nourished, Calm, Moderate Distress Eyes: Yes: WNL, Conjunctiva Clear, EOM Intact HENT: Yes: Atraumatic, Normocephalic Cardiovascular: Yes: WNL, Regular Rate and Rhythm Respiratory: Yes: Regular, CTA Bilaterally Gastrointestinal: Yes: Normal Bowel Sounds, Soft, Tenderness, Tenderness, Epigastrium, Vomiting, Other (Small amounts of dark diarrhea since CT scan last week but denies blood, nausea) Musculoskeletal: Yes: Back Pain Integumentary: Yes: Other (Scars from prior surgeries ) Neurological: Yes: WNL, Alert, Oriented, Cran Nerves II-XII Intact, Other ( Headache and dizzniess) ...Motor Strength: Yes: WNL Psychiatric: Yes: WNL, Alert, Oriented Additional Findings/Remarks: Experiencing periodic pain in abdomen that seems to come and go Labs Lab Results: CBC, BMP 04/06/16 06:35 04/06/16 06:35 Imaging - Results X-ray: Image Reviewed Assessment/Plan Acute Abdominal pain - improving as per patient continues to have mild diarrhea -GI consult Dr. Wilcox appreciated -Oxycodone po Q6H PRN as per -Pain management consult appreciated -Flagyl IV Q8H and Rocephin IV daily -Added Carafate since patient continues to have abdominal pain most likely having acute PUD will add carafate. Asthma -Stable will continue home meds. DVT Px -Enoxaparin GI -Continue Protonix
[2016-04-09] MEDS: PANTOPRAZOLE SODIUM 100 ML IVPB SCH (09:36)
[2016-04-09] MEDS: cefTRIAXone 1 GM/50 ML BAG (PRE-DOCKED) IVPB SCH (10:12)
[2016-04-09 10:48] VITALS: TEMP 98.7
[2016-04-09] MEDS: ENOXAPARIN NA (PORCINE) 40 MG/0.4 ML DISP.SYRIN SQ SCH (11:28)
[2016-04-09 13:43] VITALS: BP 149/78; PULSE 88
--- NOTE | 2016-04-09 16:04 | PN ---
Teaching Attending Note Name of Resident: Svetlana Duncan ATTENDING PHYSICIAN STATEMENT I saw and evaluated the patient. I reviewed the resident's note and discussed the case with the resident. I agree with the resident's findings and plan as documented. SUBJECTIVE: Patient is feeling better. No acute distress. wants to go home. abdominal pain improved. OBJECTIVE: Vital Signs Temperature 98.7 F 04/09/16 13:41 Pulse Rate 88 04/09/16 13:41 Respiratory Rate 15 04/09/16 10:00 Blood Pressure 149/78 04/09/16 13:41 O2 Sat by Pulse Oximetry (%) 93 L 04/09/16 11:22 GENERAL: The patient is awake, alert, and fully oriented, in no mild distress. HEAD: Normal with no signs of trauma. EYES: PERRL, extraocular movements intact, sclera anicteric, conjunctiva clear. ENT: Ears normal, oropharynx clear without exudates, moist mucous membranes. NECK: Trachea midline, full range of motion, supple. LUNGS: Breath sounds equal, clear to auscultation bilaterally, no wheezes, no crackles, no accessory muscle use. HEART: Regular rate and rhythm, S1, S2 without murmur, rub or gallop. ABDOMEN: Soft, no tenderness, positive for morphine pump, normoactive bowel sounds, no guarding, no rebound, no hepatosplenomegaly, no masses. EXTREMITIES: 2+ pulses, warm, well-perfused, no edema. NEUROLOGICAL: Cranial nerves II through XII grossly intact. Normal speech. PSYCH: Normal mood, normal affect. SKIN: Warm, dry, normal turgor, no rashes or lesions noted CBCD WBC 5.2 K/mm3 (4.0-10.0) D 04/06/16 06:35 RBC 3.35 M/mm3 (3.60-5.2) L D 04/06/16 06:35 Hgb 10.0 GM/dL (10.7-15.3) L D 04/06/16 06:35 Hct 29.2 % (32.4-45.2) L D 04/06/16 06:35 MCV 87.0 fl (80-96) 04/06/16 06:35 MCHC 34.2 g/dl (32.0-36.0) 04/06/16 06:35 RDW 13.1 % (11.6-15.6) 04/06/16 06:35 Plt Count 160 K/MM3 (134-434) D 04/06/16 06:35 MPV 9.2 fl (7.5-11.1) 04/06/16 06:35 CMP Sodium 142 mmol/L (136-145) 04/06/16 06:35 Potassium 4.2 mmol/L (3.5-5.1) 04/06/16 06:35 Chloride 109 mmol/L (98-107) H 04/06/16 06:35 Carbon Dioxide 24 mmol/L (21-32) 04/06/16 06:35 Anion Gap 9 (8-16) 04/06/16 06:35 BUN 13 mg/dL (7-18) D 04/06/16 06:35 Creatinine 0.7 mg/dL (0.55-1.02) 04/06/16 06:35 Creat Clearance w eGFR > 60 (>60) 04/06/16 06:35 Random Glucose 91 mg/dL (74-106) D 04/06/16 06:35 Calcium 8.1 mg/dL (8.5-10.1) L 04/06/16 06:35 Total Bilirubin 0.4 mg/dL (0.2-1.0) D 04/06/16 06:35 AST 12 U/L (15-37) L D 04/06/16 06:35 ALT 15 U/L (12-78) 04/06/16 06:35 Alkaline Phosphatase 67 U/L (45-117) D 04/06/16 06:35 Total Protein 5.5 g/dl (6.4-8.2) L D 04/06/16 06:35 Albumin 3.0 g/dl (3.4-5.0) L D 04/06/16 06:35 CARDIAC ENZYMES Creatine Kinase 51 IU/L (26-192) 04/05/16 07:54 Troponin I 0.04 ng/ml (0.00-0.05) 04/05/16 07:54 Current Medications Generic Name Dose Route Start Last Admin Trade Name Freq PRN Reason Stop Dose Admin Albuterol/Ipratropium 1 amp 04/05/16 03:00 04/05/16 22:45 Duoneb - NEB 1 amp Q6H PRN Administration SHORTNESS OF BREATH Ceftriaxone Sodium 1 gm 04/05/16 19:30 04/09/16 10:12 Rocephin 1gm Ivpb (Pre-Docked) IVPB 1 gm DAILY ALDA Administration Enoxaparin Sodium 40 mg 04/05/16 10:00 04/09/16 11:28 Lovenox - SQ 40 mg DAILY ALDA Administration Pantoprazole Sodium 100 mls @ 200 mls/hr 04/05/16 10:00 04/09/16 09:36 Protonix 40mg Ivpb (Pre-Docked) IVPB 200 mls/hr DAILY ALDA Administration Metronidazole 100 mls @ 100 mls/hr 04/05/16 07:45 04/09/16 10:53 Flagyl 500mg Premixed Ivpb - IVPB 100 mls/hr Q8H-IV ALDA Administration Metoclopramide HCl 10 mg 04/05/16 18:15 04/09/16 10:53 Reglan Injection - IVPB 10 mg Q8H ALDA Administration Ondansetron HCl 4 mg 04/05/16 19:14 04/08/16 22:25 Zofran Injection IVPB 4 mg Q4H PRN Administration NAUSEA AND/OR VOMITING Sucralfate 1 gm 04/08/16 16:30 04/09/16 10:12 Carafate Oral Suspension - PO 1 gm ACHS ALDA Administration Medication Instructions Recorded Albuterol Sulfate Inhaler - 2 inh PO Q4H PRN 04/05/16 [Ventolin HFA Inhaler -] Docusate Sodium [Colace -] 100 mg PO TID 04/05/16 Fluticasone Propionate [Flovent 110 mcg IH BID 04/05/16 Diskus] Gabapentin 600 mg PO TID 04/05/16 Loratadine 10 mg PO DAILY 04/05/16 Metoclopramide HCl [Reglan] 10 mg PO Q8H 04/05/16 Montelukast Na [Singulair -] 10 mg PO DAILY 04/05/16 Randolph-3 Fatty Acids [Randolph-3] 1,000 mg PO DAILY 04/05/16 Pantoprazole Sodium 40 mg PO DAILY 04/05/16 Metronidazole [Flagyl -] 250 mg PO TID #21 tablet 04/09/16 ASSESSMENT AND PLAN: Patient is a 65 year old female with significant PMHx of Asthma, Gastritis, cervical cancer s/p hysterectomy in 1994, vertebral fracture on chronic pain meds (morphine pump) presented to the ED via EMS with the chief complaints of severe abdominal pain. # Acute Abdominal pain improved , pain managment consult appreciated # Acute Diarrhea will continue patient with flagyl 250mg po tid x 7 more day and follow up at [facility] for further manangment . Gi appreciated . Added will discharge the patient on carafate. Continue home meds. # Asthma-Stable will continue home meds. DVT Px Enoxaparin
--- NOTE | 2016-04-09 16:25 | EKG ---
Test Reason : Blood Pressure : / mmHG Vent. Rate : 076 BPM Atrial Rate : 076 BPM P-R Int : 170 ms QRS Dur : 080 ms QT Int : 384 ms P-R-T Axes : 066 002 027 degrees QTc Int : 432 ms NORMAL SINUS RHYTHM NORMAL ECG NO PREVIOUS ECGS AVAILABLE Confirmed by MAGDI SANCHEZ MD ([id number]) on 04/09/2016 4:24:47 PM Referred By: Confirmed By:MAGDI SANCHEZ MD
[2016-04-09] MEDS ORDERED: metroNIDAZOLE 250 MG TABLET PO ONE (17:43)
--- NOTE | 2016-04-09 21:03 | DS ---
Physical Exam: SUBJECTIVE: Patient seen and examined. She is complaining of abdominal pain and back pain. She denies chest pain, N/V, constipation, dizziness, fever,chills. OBJECTIVE: Vital Signs Period Temp Pulse Resp BP Sys/Armenta Pulse Ox Last 24 Hr 97.9 F-98.7 F 68-88 15-16 140-150/78-81 93-96 PHYSICAL EXAM GENERAL: The patient is awake, alert, and fully oriented, in no acute distress. HEAD: Normal with no signs of trauma. EYES: PERRL, extraocular movements intact, sclera anicteric, conjunctiva clear. ENT: Ears normal, nares patent, oropharynx clear without exudates, moist mucous membranes. NECK: Trachea midline, full range of motion, supple. LUNGS: Breath sounds equal, clear to auscultation bilaterally, no wheezes, no crackles, no accessory muscle use. HEART: Regular rate and rhythm, S1, S2 without murmur, rub or gallop. ABDOMEN: Soft, tender in epigastrium, nondistended, normoactive bowel sounds, no guarding, no rebound, no hepatosplenomegaly, no masses, pump inserted in LLQ. EXTREMITIES: 2+ pulses, warm, well-perfused, no edema. NEUROLOGICAL: Cranial nerves II through XII grossly intact. Normal speech, gait not observed. PSYCH: Normal mood, normal affect. SKIN: Warm, dry, normal turgor, no rashes or lesions noted, vertical scar in lower back. LABS HOSPITAL COURSE: Date of Admission:04/05/16 Date of Discharge: 04/09/16 Minutes to complete discharge: 50 Discharge Summary Reason For Visit: ABD PAIN CHEST PAIN Hospital Course: 65 year old female presented to the ED via EMS with the chief complaints of severe abdominal pain. As per the patient, abdominal pain was located diffusely but mostly on the left lower quadrant, intermittent in nature, sharp in quality , 6/10 rising to 10/10 in intensity, radiating towards the back, no aggravating or relieving factors. She mentions abdominal pain started since June, when they changed the morphine pump. Ever since, she has had abdominal pain as described above. Went to [facility] in February, for the same problem but was discharged from the ED with pain meds. When she has the abdominal pain, she feels like urinating, has also noticed increased in urination, burning in nature +, but no incontinence. Patient also reports central chest pain, burning in nature, burping +, started 2-3 days ago, intermittent type, associated with SOB and palpitations no aggravating or relieving factors. Takes albuterol inhaler which gives short term relief for SOB. Patient states she does have dizziness, feels weak, has headache on/off but denies fever , chills, rigors, sweating, LOC. Hospital course: We admitted the pt for abdominal pain: -Pain possibly secondary to her morphine pump placement -CT abdomen and pelcis was nl, no acute changes, uS abdomen wnl. -GI: Dr. Wilcox consulted -Pain management consulted, will f/u as outpatient also Morphine pump adjustment -Percocet Q6H PRN -Levofloxacin IV 500mg Daily changed to Rocephin -Flagyl IV Q8H - Lupus anticoagulant - added Carafate oral suspension bc pt was complaining of upset stomach Diarrhea: -several small BM, watery -C.Difficile positive for antigen, not toxin -lactose restricted diet ordered The pt clinically improved. We consulted GI and she was discharged to take [id number] mg TID for 7 days and to keep lactose restr. diet. She was also advised to see pain management doctor as outpatient. Condition: Improved - Instructions Diet, Activity, Other Instructions: Please see your Primary Care Doctor in a week. See Dr Suhail Santiago in [facility] and Dr. Brandon Tompkins as soon as possible. Please take Flagyl 250 mg three times a day. See Dr. Wilcox in a week. Follow lactose free diet. If you have severe abdominal pain, nausea, vomiting, diarrhea, bleeding, dizziness, lightheadedness, chest pain come to Emergency Room. Referrals: Shar Wilcox MD [Staff Physician] - Leda Taylor MD [Staff Physician] - Disposition: HOME - Home Medications Comprehensive Discharge Medication List: Ambulatory Orders Albuterol Sulfate Inhaler - [Ventolin HFA Inhaler -] 2 inh PO Q4H PRN 04/05/16 Docusate Sodium [Colace -] 100 mg PO TID 04/05/16 Fluticasone Propionate [Flovent Diskus] 110 mcg IH BID 04/05/16 Gabapentin 600 mg PO TID 04/05/16 Loratadine 10 mg PO DAILY 04/05/16 Metoclopramide HCl [Reglan] 10 mg PO Q8H 04/05/16 Montelukast Na [Singulair -] 10 mg PO DAILY 04/05/16 [place]-3 Fatty Acids [[place]-3] 1,000 mg PO DAILY 04/05/16 Pantoprazole Sodium 40 mg PO DAILY 04/05/16 Metronidazole [Flagyl -] 250 mg PO TID #21 tablet 04/09/16 Problem List - Problems (1) Abdominal pain Code(s): R10.9 - UNSPECIFIED ABDOMINAL PAIN This patient is new to me today: No Emergency Visit: Yes ED Registration Date: 04/05/16 Care time: The patient presented to the Emergency Department on the above date and was hospitalized for further evaluation of their emergent condition. Critical Care patient: No - Discharge Referral Referred to [facility] Med P.C.: No
[2016-04-10 14:16] LABS: INTERPRET Comment: (.)
== END 2016-04-09 18:43 | disposition home or self-care (01) | DRG 392 ==
LOC: JER 13:37 → OBSVTOIN 04-05 01:17 → JERBED 04-05 01:17 → J5S 04-05 17:30 → J6S 04-06 17:59
PROVIDERS: ADMIT Internal Medicine; ATTEND Internal Medicine
DX: R10.32 Left lower quadrant pain (principal); R07.9 Chest pain, unspecified; J45.909 Unspecified asthma, uncomplicated; R19.7 Diarrhea, unspecified; Z87.891 Personal history of nicotine dependence
CPT/HCPCS: 36415; 71020-TC; 74020-TC; 74177-TC; 80053; 81003; 81015; 82150; 82248; 82550; 83690; 84484; 85025; 85379; 85610; 85613; 85732; 87324; 87449; 93005; 93010; 94640; 97116-GP; 97162-PG; 99285-25; Q9967

== ENCOUNTER → 2016-04-26 | Emergency (ER) | payer OTHER ==
[~2016-04-26] MED LIST: ACETAMINOPHEN 325 MG TABLET (FP) PO ONE; OXYCODONE/APAP 5/325MG COMBO TABLET ONE; OXYCODONE/APAP 5/325MG COMBO TABLET PO ONE; SODIUM CHLORIDE 500 ML IV STA; morphine CARPU-JECT 2 MG/1 ML DISP.SYRIN IVPUSH ONE; morphine CARPU-JECT 2 MG/1 ML DISP.SYRIN ONE
[2016-04-26 00:28] VITALS: BMI 17.2
[2016-04-26 01:15] LABS: BASOPHIL 0.7 % (0-2.0); EOSINOPHIL 0.4 % (0-4.5); MCHC 32.9 g/dl (32.0-36.0); NEUTROPHILS 83.5 % (42.8-82.8); PLATELET COUNT 401 K/MM3 (134-434); RDW 14.3 % (11.6-15.6); WHITE BLOOD COUNT 9.3 K/mm3 (4.0-10.0)
--- NOTE | 2016-04-26 01:38 | PDOC ---
*Physical Exam - Vital Signs Last Vital Signs Temp Pulse Resp BP Pulse Ox 98.4 F 106 H 18 134/86 97 04/26/16 00:26 04/26/16 00:26 04/26/16 00:26 04/26/16 00:26 04/26/16 00:26 ED Treatment Course - LABORATORY CBC & Chemistry Diagram: 04/26/16 00:50 04/26/16 00:50 - ADDITIONAL ORDERS Additional order review: 04/26/16 00:50 RBC 4.54 D MCV 88.0 MCHC 32.9 RDW 14.3 MPV 9.0 Neutrophils % 83.5 H Lymphocytes % 12.1 D Monocytes % 3.3 L Eosinophils % 0.4 D Basophils % 0.7 Medical Decision Making - Medical Decision Making 04/26/16 01:38 agree with care from ALMA Azevedo *DC/Admit/Observation/Transfer Diagnosis at time of Disposition: Abdominal pain - Discharge Dispostion Disposition: HOME Condition at time of disposition: Improved - Prescriptions Prescriptions: Nitrofurantoin Monohyd/M-Cryst [Macrobid -] 100 mg PO BID #14 capsule - Referrals Referrals: Ann Donahue [Primary Care Provider] - - Patient Instructions Printed Discharge Instructions: DI for Abdominal Pain-Adult Additional Instructions: FOLLOW UP WITH YOUR DOCTOR THIS WEEK. CALL TO SCHEDULE APPOINTMENT TO GET REFERRAL TO PAIN MANAGEMENT. CONTINUE ROUTINE MEDICATIONS. Print Language: ANGOLAN
[2016-04-26 01:59] LABS: GLUCOSE,RANDOM 130 mg/dL (74-106)
[2016-04-26 02:00] LABS: ALBUMIN 3.6 g/dl (3.4-5.0); ANION GAP 10 (8-16); BILIRUBIN,TOTAL 0.5 mg/dL (0.2-1.0); CALCIUM 9.5 mg/dL (8.5-10.1); CO2 27 mmol/L (21-32); CREATININE 0.8 mg/dL (0.55-1.02); SGOT/AST 14 U/L (15-37); TOT PROT 7.8 g/dl (6.4-8.2)
[2016-04-26 02:01] LABS: ALK PHOS 94 U/L (45-117); AMYLASE 68 U/L (25-115); SGPT/ALT 18 U/L (12-78)
--- NOTE | 2016-04-26 02:31 | PDOC ---
History of Present Illness - General Chief Complaint: Pain, Acute Stated Complaint: POSSIBLE UTI Time Seen by Provider: 04/26/16 00:39 History Source: Patient Exam Limitations: No Limitations - History of Present Illness Initial Comments: 04/26/16 02:25 65yo Female patient presents to ED c/o pelvic pain. Patient states symptoms began in June/2015 when her spinal stimulator was implanted into her abdomen. She stated she was evaluated by her PMD and had normal testing. She reports associated nausea. Denies OTC Tylenol or Motrin. Denies any other complaints at this time. Timing/Duration: other Severity: mild Modifying Factors: worse with: cold therapy, eating, immobilization, medication , movement, rest, other Associated Symptoms: reports: nausea/vomiting. denies: denies symptoms, chest pain, cough, diaphoresis, fever/chills, headaches, loss of appetite, malaise, rash, seizure, shortness of breath, syncope, weakness, other Past History - Travel Traveled outside of the country in the last 30 days: No Close contact w/someone who was outside of country & ill: No - Past Medical History Allergies/Adverse Reactions: Allergies Allergy/AdvReac Type Severity Reaction Status Date / Time No Known Allergies Allergy Verified 04/26/16 00:26 Home Medications: Ambulatory Orders Albuterol Sulfate Inhaler - [Ventolin HFA Inhaler -] 2 inh PO Q4H PRN 04/05/16 Docusate Sodium [Colace -] 100 mg PO TID 04/05/16 Fluticasone Propionate [Flovent Diskus] 110 mcg IH BID 04/05/16 Gabapentin 600 mg PO TID 04/05/16 Loratadine 10 mg PO DAILY 04/05/16 Metoclopramide HCl [Reglan] 10 mg PO Q8H 04/05/16 Montelukast Na [Singulair -] 10 mg PO DAILY 04/05/16 Celina-3 Fatty Acids [Celina-3] 1,000 mg PO DAILY 04/05/16 Pantoprazole Sodium 40 mg PO DAILY 04/05/16 Sucralfate [Carafate] 1 gm PO ACHS #30 ml 04/10/16 Asthma: Yes Cancer: Yes (cervical) - Surgical History Cholecystectomy: Yes - Psycho/Social/Smoking Cessation Hx Anxiety: No Suicidal Ideation: No Smoking History: Unknown if ever smoked Have you smoked in the past 12 months: Yes Number of Cigarettes Smoked Daily: 3 If you are a former smoker, when did you quit?: 2000 Information on smoking cessation initiated: No Hx Alcohol Use: No Drug/Substance Use Hx: No Substance Use Type: None Hx Substance Use Treatment: No Review of Systems - Review of Systems Able to Perform ROS?: Yes Is the patient limited Belarusian proficient: No Constitutional: No: Chills, Fever Respiratory: No: Cough, Shortness of Breath, SOB at Rest, Stridor, Wheezing Cardiac (ROS): No: Chest Pain, Edema, Irregular Heart Rate, Lightheadedness, Palpitations, Syncope, Chest Tightness ABD/GI: Yes: Nausea. No: Blood Streaked Bowels, Constipated, Diarrhea, Poor Appetite, Poor Fluid Intake, Rectal Bleeding, Vomiting, Tarry Stools : No: Burning, Dysuria, Flank Pain, Pain, Urgency Musculoskeletal: No: Back Pain Integumentary: No: Erythema, Rash Neurological: No: Headache, Numbness, Paresthesia, Seizure, Tingling, Tremors, Weakness All Other Systems: Reviewed and Negative *Physical Exam - Vital Signs Last Vital Signs Temp Pulse Resp BP Pulse Ox 98.4 F 106 H 18 134/86 97 04/26/16 00:26 04/26/16 00:26 04/26/16 00:26 04/26/16 00:04/26/16 00:04/26/16 02:52 - Physical Exam General Appearance: Yes: Nourished, Appropriately Dressed, Mild Distress. No: Apparent Distress HEENT: positive: EOMI, AYAN, Normal ENT Inspection, Normal Voice, Symmetrical, TMs Normal, Pharynx Normal. negative: Tonsillar Exudate, Tonsillar Erythema, Nasal Congestion, Rhinorrhea, TM Bulging, TM Dull, TM Erythema Neck: positive: Trachea midline, Supple. negative: Stridor, Lymphadenopathy (R) , Lymphadenopathy (L) Respiratory/Chest: positive: Lungs Clear, Normal Breath Sounds. negative: Respiratory Distress, Accessory Muscle Use, Labored Respiration, Rapid RR Cardiovascular: positive: Regular Rhythm, Regular Rate. negative: Edema, JVD, Murmur Gastrointestinal/Abdominal: positive: Soft, Decreased BS, Tenderness ( SUPRAPUBIC TENDERNESS ON DEEP PALPATION), Other (Spinal Stimulator to LLQ). negative: Distended, Guarding, Rebound Musculoskeletal: positive: Normal Inspection. negative: CVA Tenderness Extremity: positive: Normal Capillary Refill, Normal Inspection, Normal Range of Motion. negative: Pedal Edema, Swelling Integumentary: positive: Normal Color, Dry, Warm. 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 NML intact, Fully Oriented, Alert, Normal Mood/ Affect, Normal Response, Motor Strength 07/20 ED Treatment Course - LABORATORY CBC & Chemistry Diagram: 04/26/16 00:50 04/26/16 00:50 - ADDITIONAL ORDERS Additional order review: Laboratory Results 04/26/16 00:50 Sodium 143 Potassium 4.4 Chloride 106 Carbon Dioxide 27 Anion Gap 10 BUN 20 H D Creatinine 0.8 Creat Clearance w eGFR > 60 Random Glucose 130 H D Calcium 9.5 Total Bilirubin 0.5 D AST 14 L ALT 18 Alkaline Phosphatase 94 D Total Protein 7.8 D Albumin 3.6 Total Amylase 68 D Lipase 227 04/26/16 00:50 RBC 4.54 D MCV 88.0 MCHC 32.9 RDW 14.3 MPV 9.0 Neutrophils % 83.5 H Lymphocytes % 12.1 D Monocytes % 3.3 L Eosinophils % 0.4 D Basophils % 0.7 - Medications Given in the ED: ED Medications Discontinued Medications Generic Name Dose Route Start Last Admin Trade Name Freq PRN Reason Stop Dose Admin Sodium Chloride 500 mls @ 500 mls/hr 04/26/16 00:51 04/26/16 01:51 Normal Saline - IV 04/26/16 01:50 500 mls/hr ASDIR STA Administration *DC/Admit/Observation/Transfer Diagnosis at time of Disposition: Abdominal pain Qualifiers: Abdominal location: left lower quadrant Qualified Code(s): R10.32 - Left lower quadrant pain - Discharge Dispostion Disposition: HOME Condition at time of disposition: Improved Admit: No - Patient Instructions Printed Discharge Instructions: DI for Abdominal Pain-Adult Additional Instructions: FOLLOW UP WITH YOUR DOCTOR THIS WEEK. CALL TO SCHEDULE APPOINTMENT TO GET REFERRAL TO PAIN MANAGEMENT. CONTINUE ROUTINE MEDICATIONS. Print Language: PERSIAN
[2016-04-26 03:53] LABS: URINE APPEARANCE SLCLOUDY; URINE BILIRUBIN NEGATIVE (NEGATIVE); URINE BLOOD NEGATIVE (NEGATIVE); URINE COLOR YELLOW; URINE GLUCOSE (UA) NEGATIVE (NEGATIVE); URINE KETONE NEGATIVE (NEGATIVE); URINE NITRITE NEGATIVE (NEGATIVE); URINE PROTEIN NEGATIVE (NEGATIVE); URINE UROBILINOGEN NEGATIVE E.U./dl (0.2-1.0)
[2016-04-26 04:11] LABS: URINE LEUK ESTERASE 1+ (NEGATIVE)
[2016-04-26 04:32] LABS: URINE BACTERIA RARE /hpf (NONE SEEN); URINE HYALINE CAST 1 /lpf; URINE MUCUS RARE; URINE RBC 3 /hpf (0-3); URINE WBC 6 /hpf (3-5)
[2016-04-26 04:34] VITALS: PULSE 95; TEMP 98.9
[2016-04-26 07:13] VITALS: BP 143/99
--- NOTE | 2016-04-26 07:32 | PDOC ---
*Physical Exam - Vital Signs Last Vital Signs Temp Pulse Resp BP Pulse Ox 98.9 F 95 H 20 143/99 96 04/26/16 04:33 04/26/16 07:12 04/26/16 07:12 04/26/16 07:12 04/26/16 07:12 ED Treatment Course - LABORATORY CBC & Chemistry Diagram: 04/26/16 00:50 04/26/16 00:50 - ADDITIONAL ORDERS Additional order review: Laboratory Results 04/26/16 04/26/16 03:30 00:50 Sodium 143 Potassium 4.4 Chloride 106 Carbon Dioxide 27 Anion Gap 10 BUN 20 H D Creatinine 0.8 Creat Clearance w eGFR > 60 Random Glucose 130 H D Calcium 9.5 Total Bilirubin 0.5 D AST 14 L ALT 18 Alkaline Phosphatase 94 D Total Protein 7.8 D Albumin 3.6 Total Amylase 68 D Lipase 227 Urine Color Yellow Urine Appearance Slcloudy Urine pH 7.0 D Ur Specific [place] 1.020 Urine Protein Negative Urine Glucose (UA) Negative Urine Ketones Negative Urine Blood Negative Urine Nitrite Negative Urine Bilirubin Negative Urine Urobilinogen Negative Ur Leukocyte Esterase 1+ H Urine RBC 3 Urine WBC 6 Ur Epithelial Cells Rare Urine Bacteria Rare Hyaline Casts 1 Urine Mucus Rare 04/26/16 00:50 RBC 4.54 D MCV 88.0 MCHC 32.9 RDW 14.3 MPV 9.0 Neutrophils % 83.5 H Lymphocytes % 12.1 D Monocytes % 3.3 L Eosinophils % 0.4 D Basophils % 0.7 - Medications Given in the ED: ED Medications Discontinued Medications Generic Name Dose Route Start Last Admin Trade Name Joshuaq PRN Reason Stop Dose Admin Acetaminophen 325 mg 04/26/16 06:21 04/26/16 06:32 Tylenol - PO 04/26/16 06:22 325 mg ONCE ONE Administration Sodium Chloride 500 mls @ 500 mls/hr 04/26/16 00:51 04/26/16 01:51 Normal Saline - IV 04/26/16 01:50 500 mls/hr ASDIR STA Administration Morphine Sulfate 2 mg 04/26/16 03:23 04/26/16 03:35 Morphine Injection - IVPUSH 04/26/16 03:24 2 mg ONCE ONE Administration Oxycodone/Acetaminophen 1 combo 04/26/16 06:21 04/26/16 06:32 Percocet 5/325 - PO 04/26/16 06:22 1 combo ONCE ONE Administration Medical Decision Making - Medical Decision Making 04/26/16 07:31 Upon leaving patient was complaining of suprapubic pain. Patient when questioned about urinary frequency or pressure she states yes intimately for the past 3 days. Patient states did complete Flagyl for C. difficile last week. Pt denies any change in bowel pattern presently. Patient's urine did show 6 white cells and 1+ leukocytes. Patient's urine culture was sent. Patient will be treated with Macrobid unless cultures show no sensitivity to the above. *DC/Admit/Observation/Transfer Diagnosis at time of Disposition: Abdominal pain Qualifiers: Abdominal location: left lower quadrant Qualified Code(s): R10.32 - Left lower quadrant pain - Discharge Dispostion Disposition: HOME Condition at time of disposition: Improved - Referrals Referrals: Ann Donahue [Primary Care Provider] - - Patient Instructions Printed Discharge Instructions: DI for Abdominal Pain-Adult Additional Instructions: FOLLOW UP WITH YOUR DOCTOR THIS WEEK. CALL TO SCHEDULE APPOINTMENT TO GET REFERRAL TO PAIN MANAGEMENT. CONTINUE ROUTINE MEDICATIONS. Print Language: GUINEAN - Post Discharge Activity
== END | disposition home or self-care (01) ==
LOC: JER 00:11
PROC: 3E033NZ Introduction of Analgesics, Hypnotics, Sedatives into Peripheral Vein, Percutaneous Approach (ICD-10-PCS; principal; 2016-04-26)
PROC: 3E0337Z Introduction of Electrolytic and Water Balance Substance into Peripheral Vein, Percutaneous Approach (ICD-10-PCS; 2016-04-26)
DX: R10.32 Left lower quadrant pain (principal); J45.909 Unspecified asthma, uncomplicated; Z85.41 Personal history of malignant neoplasm of cervix uteri; Z87.891 Personal history of nicotine dependence
CPT/HCPCS: 36415; 74176-TC; 80053; 81003; 81015; 82150; 83690; 85025; 87086; 99283-25